=== PATIENT | female | born 1955 | race Caucasian/White ===

== ENCOUNTER 2016-09-23 08:30 | Emergency (ER) | payer BC ==
--- NOTE | 2016-09-23 08:56 | ED.PDOC ---
History of Present Illness - General Chief Complaint: Chest Pain/CT Stated Complaint: jaw and chest tightness Time Seen by Provider: 09/23/16 08:35 Source: patient Exam Limitations: no limitations - History of Present Illness Initial Comments: Kourtney Jaramillo 60 y/o female with history of anxiety depression and chronic back pain stated that for the last 3 weeks had been having jaw tightness and pain accompanied by chest tightness lasting for about 4-6 minutes mostly at night sometimes waking her up usually happens 2 x a day but the last 3 days getting more frequent 5-6 x a day and decided to look at internet suggesting it might be her heart decided to come to ER for further evaluation.Denies exertional chest pain or dyspnea stated non radiating,no diaphoresis,no nausea, no dizziness but with some feeling of sob. Timing/Duration: intermittent, resolved prior to arrival Severity: moderate Improving Factors: nothing Worsening Factors: nothing Associated Symptoms: denies symptoms Allergies/Adverse Reactions: Allergies NO KNOWN ALLERGY Allergy (Verified 09/23/16 09:31) Home Medications: Ambulatory Orders HYDROcodone 10MG/APAP 325MG [[place] 10/325] 2 ea PO Q8HR PRN 03/22/15 ALPRAZolam [Xanax] 1 mg PO BEDTIME PRN #0 tab 04/15/15 Vilazodone HCl [Viibryd] 40 mg PO DAILY 09/23/16 Review of Systems - Review of Systems Constitutional: States: no symptoms reported EENTM: States: no symptoms reported Respiratory: States: see HPI Cardiology: States: see HPI Gastrointestinal/Abdominal: States: no symptoms reported Genitourinary: States: no symptoms reported Musculoskeletal: States: back pain - chronic-osteoarthritis Skin: States: no symptoms reported Neurological: States: no symptoms reported Endocrine: States: no symptoms reported Hematologic/Lymphatic: States: no symptoms reported Past Medical History (General) - Patient Medical History Hx Seizures: No Hx Stroke: No Hx Dementia: No Hx Asthma: No Hx of COPD: No Hx Congestive Heart Failure: No Hx Pacemaker: No Hx Hypertension: No Hx Diabetes: No Hx Gastroesophageal Reflux: Yes Hx Renal Disease: No Hx Cancer: No Hx of HIV: No Hx Hepatitis C: No Hx MRSA: No Hx Other PMH: Yes - chronic back pain,anxiety,depression Surgical History: colectomy - redundant colon chronic fecal impaction, other - hysterectomy Other Surgeries:: mammogram,colonoscopy - Vaccination History Hx Tetanus, Diphtheria Vaccination: No Hx Influenza Vaccination: No - Social History Hx Tobacco Use: No Hx Alcohol Use: No Hx Substance Use: No Hx Substance Use Treatment: No Hx Depression: Yes - on celexa no suicidal thoughts Hx Physical Abuse: No Hx Emotional Abuse: No Hx Suspected Abuse: No - Activities of Daily Living Patient Lives Alone: No - with Grooming Ability: Independent Eating (Feeding) Ability: Independent Toileting Ability: Independent - Female History Patient is a Female of Child Bearing Age (10 -59 yrs old): No Hx Last Menstrual Period: 07/01/84 Family Medical History - Family History Mother Age (years): 42 Living Status: Hx Family Hypertension: Yes - dad Hx Cardiac Disease: Yes - heart attack at 42- Hx Family Diabetes: Yes - dad Hx Family Cancer: Yes - breast-mother,sister Hx Family;Other: sisters with breast cancer, brother and sister have diabetes. Father Living Status: Age at (years of age): 69 Cause of : complications from surgery Hx Family Hypertension: Yes Hx Cardiac Disease: Yes Hx Family Diabetes: Yes Physical Exam - Physical Exam General Appearance: Alert, No apparent distress Eye Exam: bilateral normal Ears, Nose, Throat: hearing grossly normal, normal ENT inspection, normal pharynx Neck: non-tender, full range of motion, supple, normal inspection Respiratory: chest non-tender, lungs clear, normal breath sounds, no respiratory distress Cardiovascular/Chest: normal peripheral pulses, regular rate, rhythm, no edema, no gallop, no JVD, no murmur Peripheral Pulses: radial,right: 2+, radial,left: 2+ Gastrointestinal/Abdominal: normal bowel sounds, non tender, soft Back Exam: normal inspection, no CVA tenderness, no vertebral tenderness Extremity: normal range of motion, non-tender, normal inspection Neurologic: no motor/sensory deficits, alert, normal mood/affect Skin Exam: normal color, warm/dry, cyanosis Progress - Results/Orders Results/Orders: 09/23/16 09:00 CARDIAC ENZYME GROUP Stat COMPLETE METABOLIC PROFILE Stat LIPID PANEL Stat EKG STAT Laboratory Results WBC 4.7 K/mm3 (4.8-10.8) L 09/23/16 09:00 RBC 4.67 M/mm3 (4.20-5.40) 09/23/16 09:00 Hgb 14.0 gm/dL (12.0-16.0) 09/23/16 09:00 Hct 41.5 % (36.0-47.0) 09/23/16 09:00 MCV 88.9 fl (81.0-99.0) 09/23/16 09:00 MCH 30.0 pg (27.0-31.0) 09/23/16 09:00 MCHC 33.7 g/dL (33.0-37.0) 09/23/16 09:00 RDW 12.9 % (11.5-14.5) 09/23/16 09:00 Plt Count 381 K/mm3 (130-400) 09/23/16 09:00 MPV 7.8 fl (7.40-10.4) 09/23/16 09:00 Absolute Neuts (auto) 2.60 K/uL (1.8-6.8) 09/23/16 09:00 Absolute Lymphs (auto) 1.70 K/uL (1.0-3.4) 09/23/16 09:00 Absolute Monos (auto) 0.20 K/uL (0.2-0.8) 09/23/16 09:00 Absolute Eos (auto) 0.30 K/uL (0.0-0.4) 09/23/16 09:00 Absolute Basos (auto) 0.10 K/uL (0.0-0.1) 09/23/16 09:00 Neutrophils % 54.6 % (42.0-78.0) 09/23/16 09:00 Lymphocytes % 35.0 % (20.0-50.0) 09/23/16 09:00 Monocytes % 3.5 % (2.0-9.0) 09/23/16 09:00 Eosinophils % 5.8 % (1.0-5.0) H 09/23/16 09:00 Basophils % 1.1 % (0.0-2.0) 09/23/16 09:00 D-Dimer, Quantitative < 230 ng/mL (0-230) 09/23/16 09:00 Sodium 140 mmol/L (135-145) 09/23/16 09:00 Potassium 3.5 mmol/L (3.6-5.0) L 09/23/16 09:00 Chloride 103 mmol/L (101-111) 09/23/16 09:00 Carbon Dioxide 28 mmol/L (21-31) 09/23/16 09:00 Anion Gap 12.5 (12-18) 09/23/16 09:00 BUN 12 mg/dL (7-18) 09/23/16 09:00 Creatinine 0.74 mg/dL (0.6-1.3) 09/23/16 09:00 BUN/Creatinine Ratio 16.2 (10-20) 09/23/16 09:00 Random Glucose 128 mg/dL (70-105) H 09/23/16 09:00 Serum Osmolality 280.8 mOsm/L (275-295) 09/23/16 09:00 Calcium 9.8 mg/dL (8.4-10.2) 09/23/16 09:00 Total Bilirubin 0.4 mg/dL (0.2-1.0) 09/23/16 09:00 AST 30 IU/L (10-42) 09/23/16 09:00 ALT 29 IU/L (10-60) 09/23/16 09:00 Alkaline Phosphatase 79 IU/L (42-121) 09/23/16 09:00 Creatine Kinase 92 IU/L (26-140) 09/23/16 09:00 CK-MB (CK-2) 1.6 ng/mL (0.0-4.4) 09/23/16 09:00 Troponin I < 0.02 ng/mL (0.01-0.05) 09/23/16 09:00 Serum Total Protein 7.2 gm/dL (6.4-8.2) 09/23/16 09:00 Albumin 4.2 g/dl (3.2-5.5) 09/23/16 09:00 Globulin 3.0 gm/dL (2.3-3.5) 09/23/16 09:00 Albumin/Globulin Ratio 1.4 (1.1-1.9) 09/23/16 09:00 Triglycerides 119 mg/dL (35-160) 09/23/16 09:00 Cholesterol 193 mg/dL (100-200) 09/23/16 09:00 Cholesterol Risk Factr 3.5 (4.0-6.7) L 09/23/16 09:00 LDL Cholesterol Direct 120.8 mg/dL (1.0-130.0) 09/23/16 09:00 HDL Cholesterol 55 mg/dL (29-89) 09/23/16 09:00 Urine Color Yellow (Yellow) 09/23/16 09:10 Urine Appearance Clear (Clear) 09/23/16 09:10 Urine pH 5.5 (4.5-7.8) 09/23/16 09:10 Ur Specific [place] >= 1.030 (1.005-1.030) 09/23/16 09:10 Urine Protein Negative mg/dL 09/23/16 09:10 Urine Glucose (UA) Negative mg/dL (Negative) 09/23/16 09:10 Urine Ketones Negative mg/dL (NEGATIVE) 09/23/16 09:10 Urine Blood Trace-intact (Negative) H 09/23/16 09:10 Urine Nitrite Negative 09/23/16 09:10 Urine Bilirubin Negative (NEGATIVE) 09/23/16 09:10 Urine Urobilinogen 0.2 mg/dL (0.2-1.0) 09/23/16 09:10 Ur Leukocyte Esterase Negative (Negative) 09/23/16 09:10 Urine RBC 0-1 /hpf 09/23/16 09:10 Urine WBC 0 /hpf 09/23/16 09:10 Ur Epithelial Cells 1-3 /hpf 09/23/16 09:10 Urine Bacteria 0 09/23/16 09:10 Vital Signs - 24 hr 09/23/16 09/23/16 09/23/16 08:55 09:22 09:30 Temperature 98.3 F Pulse Rate [L 87 75 73 Arm] Respiratory 12 20 16 Rate Blood Pressure 130/73 128/75 118/75 [L Arm] O2 Sat by Pulse 93 L 98 92 L Oximetry 09/23/16 09:33 Temperature Pulse Rate [L Arm] Respiratory 20 Rate Blood Pressure [L Arm] O2 Sat by Pulse Oximetry Troponin # 2- normal - EKG/XRAY/CT EKG: Sinus, no ST T wave changes Comments: heart rate-72 XRAY: chest - no acute abnormality noted Departure - Departure Clinical Impression: Feeling of chest tightness, Jaw pain, non-TMJ Time of Disposition: 11:02 Disposition: Discharge to Home or Self Care Condition: Good Departure Forms: ED Discharge - Pt. Copy, Patient Portal Self Enrollment Instructions: DI for Atypical Chest Pain Home Medications: Ambulatory Orders HYDROcodone 10MG/APAP 325MG [[place] ] 2 ea PO Q8HR PRN 03/22/15 ALPRAZolam [Xanax] 1 mg PO BEDTIME PRN #0 tab 04/15/15 Vilazodone HCl [Viibryd] 40 mg PO DAILY 09/23/16 Additional Instructions: RETURN TO EMERGENCY ROOM NEEDED;FOLLOW UP WITH PRIMARY MD 09/24/16 callo for your appointment.
[2016-09-23] MEDS ORDERED: ASPIRIN (CHEWABLE) 81 MG TAB PO ONE (09:00)
--- NOTE | 2016-09-23 09:26 | RAD ---
PROCEDURE: XR CHEST 1 VIEW HISTORY: pain COMPARISON: 10/03/2015 TECHNIQUE: Single projection of the chest was done. FINDINGS: The lung rojas are well inflated . There are no discrete airspace infiltrates, pneumothoraces or pleural effusions. The pulmonary vascularity is normal. The cardiomediastinal silhouette is stable and unremarkable. IMPRESSION: There is no acute pleural-parenchymal process seen in the imaged lung rojas. Location of Interpretation: [facility] Electronically signed by: Derian Wise MD 09/23/2016 9:25 AM CDT
[2016-09-23 11:21] VITALS: BP 128/58; TEMP 97.8; O2SAT 97
== END 2016-09-23 11:20 | disposition home or self-care (01) ==
LOC: ER 08:30
DX: R07.89 Other chest pain (principal); R68.84 Jaw pain; F41.8 Other specified anxiety disorders; G89.29 Other chronic pain; M54.9 Dorsalgia, unspecified; K21.9 Gastro-esophageal reflux disease without esophagitis; Z82.49 Family history of ischemic heart disease and other diseases of the circulatory system; Z83.3 Family history of diabetes mellitus; Z80.3 Family history of malignant neoplasm of breast; Z79.899 Other long term (current) drug therapy

== ENCOUNTER → 2017-02-01 | Outpatient (CLI) | payer BC | END | disposition home or self-care (01) | LOC: GMAL 13:07 | PROVIDERS: ATTEND Family Medicine | DX: N95.1 Menopausal and female climacteric states (principal); R53.83 Other fatigue; E29.1 Testicular hypofunction ==

== ENCOUNTER → 2017-04-17 | Outpatient (CLI) | payer BC | LOC: GMA 16:53 | PROVIDERS: ATTEND Nurse Practitioner Acute Care | DX: D51.3 Other dietary vitamin B12 deficiency anemia (principal) ==

== ENCOUNTER 2017-05-20 16:12 | Emergency (ER) | payer BC ==
--- NOTE | 2017-05-20 17:15 | ED.PDOC ---
History of Present Illness - General Chief Complaint: General Stated Complaint: POSS FLU Time Seen by Provider: 05/20/17 16:28 Source: patient Exam Limitations: no limitations - History of Present Illness Initial Comments: PT WAS SENT HERE FROM THE CLINIC FOR EVALUATION OF FLU LIKE SYMPTOMS. PT HAS HAD FEVER, AND CHILLS SINCE LAST NIGHT ASSOCIATED WITH NASAL CONGESTION, THROAT IRRITATION, BODYACHES AND HEADACHE. PT REPORTS TAKING ADVIL AND MUCINEX AT HOME WITHOUT RELIEF. PT REPORTS GETTING FLU SHOT AND PNEUMONIA SHOT THIS YEAR. Timing/Duration: 24 hours Severity: moderate Improving Factors: rest Worsening Factors: movement Associated Symptoms: fever/chills, headaches, malaise, weakness Allergies/Adverse Reactions: Allergies NO KNOWN ALLERGY Allergy (Verified 05/20/17 16:26) Home Medications: Ambulatory Orders ALPRAZolam [Xanax] 1 mg PO BEDTIME PRN #0 tab 04/15/15 Cefuroxime Axetil [Ceftin] 250 mg PO BID 10 Days #20 tab 05/20/17 Review of Systems - Review of Systems Constitutional: States: see HPI, chills, fever, malaise, weakness EENTM: States: nose congestion, throat pain Respiratory: Denies: cough, short of breath Cardiology: Denies: chest pain, palpitations Gastrointestinal/Abdominal: Denies: abdominal pain, nausea, vomiting Genitourinary: Denies: dysuria, frequency Musculoskeletal: Denies: back pain, joint swelling Skin: Denies: change in hair/nails, lesions Neurological: States: no symptoms reported Endocrine: States: no symptoms reported Past Medical History (General) - Patient Medical History Hx Seizures: No Hx Stroke: No Hx Dementia: No Hx Asthma: No Hx of COPD: No Hx Cardiac Disorders: No Hx Congestive Heart Failure: No Hx Pacemaker: No Hx Hypertension: No Hx Diabetes: No Hx Gastroesophageal Reflux: Yes Hx Renal Disease: No Hx Cancer: No Hx of HIV: No Hx Hepatitis C: No Hx MRSA: No Surgical History: colectomy, Hysterectomy - Vaccination History Hx Tetanus, Diphtheria Vaccination: No Hx Influenza Vaccination: Yes Hx Pneumococcal Vaccination: No Immunizations Up to Date: No - Social History Hx Tobacco Use: No Hx Chewing Tobacco Use: No Hx Alcohol Use: No Hx Substance Use: No Hx Substance Use Treatment: No Hx Depression: Yes - on celexa no suicidal thoughts Hx Physical Abuse: No Hx Emotional Abuse: No Hx Suspected Abuse: No - Female History Hx Last Menstrual Period: 07/01/84 Patient : No Family Medical History - Family History Mother Age (years): 42 Living Status: Hx Family Hypertension: Yes - dad Hx Cardiac Disease: Yes - heart attack at 42- Hx Family Diabetes: Yes - dad Hx Family Cancer: Yes - breast-mother,sister Hx Family;Other: sisters with breast cancer, brother and sister have diabetes. Father Living Status: Age at (years of age): 69 Cause of : complications from surgery Hx Family Hypertension: Yes Hx Cardiac Disease: Yes Hx Family Diabetes: Yes Physical Exam - Physical Exam General Appearance: Alert, Well Developed, Well Groomed, Well Hydrated, Other - APPEARS UNCOMFORTABLE Eye Exam: bilateral normal Ears, Nose, Throat: hearing grossly normal Neck: full range of motion, normal inspection Respiratory: chest non-tender, normal breath sounds, no respiratory distress Cardiovascular/Chest: regular rate, rhythm, no murmur Gastrointestinal/Abdominal: non tender, soft Back Exam: normal inspection, no CVA tenderness Extremity: non-tender, normal inspection Neurologic: alert, normal mood/affect, oriented x 3 Skin Exam: normal color, warm/dry Progress - Progress Progress: 05/20/17 18:58 PT REPORTS ONLY MINIMAL IMPROVEMENT IN BODYACHES AFTER IV FLUID AND TORADOL. LABS AND DIAGNOSTIC STUDIES DISCUSSED. WILL TREAT UTI AND ADVISE PT TO FOLLOW UP WITH PCP IN 1-2 DAYS. - Results/Orders Results/Orders: 05/20/17 17:05 Sodium Chloride 0.9% 1000ML [Ns 1000 ml] 1,000 ml IVS .QD 05/20/17 17:15 EKG STAT 05/20/17 18:33 URINE CULTURE W/COLONY COUNT Stat Laboratory Results - last 24 hr 05/20/17 05/20/17 05/20/17 17:19 17:19 18:33 WBC 9.6 RBC 4.35 Hgb 13.0 Hct 38.3 MCV 88.1 MCH 29.9 MCHC 34.0 RDW 13.3 Plt Count 306 MPV 7.4 Absolute Neuts (auto) 7.10 H Absolute Lymphs (auto) 1.90 Absolute Monos (auto) 0.30 Absolute Eos (auto) 0.30 Absolute Basos (auto) 0.00 Neutrophils % 74.2 Lymphocytes % 19.5 L Monocytes % 3.3 Eosinophils % 2.6 Basophils % 0.4 Sodium 139 Potassium 3.6 Chloride 102 Carbon Dioxide 30 Anion Gap 10.6 L BUN 12 Creatinine 0.52 L BUN/Creatinine Ratio 23.1 H Random Glucose 94 Serum Osmolality 277.0 Calcium 9.3 Total Bilirubin 0.5 AST 32 ALT 30 Alkaline Phosphatase 60 Serum Total Protein 7.7 Albumin 3.9 Globulin 3.8 H Albumin/Globulin Ratio 1.0 L Urine Color Yellow Urine Appearance Sl cloudy Urine pH 5.5 Ur Specific [place] >= 1.030 Urine Protein Negative Urine Glucose (UA) Negative Urine Ketones 40 H Urine Blood Negative Urine Nitrite Negative Urine Bilirubin Small H Urine Urobilinogen 0.2 Ur Leukocyte Esterase Negative Urine RBC 3-5 H Urine WBC 10-20 H Ur Epithelial Cells 10-20 Urine Bacteria 4+ H Urine Mucus Small - EKG/XRAY/CT EKG: Sinus - @90BPM, NL INTERVALS, NL AXIS, no ST T wave changes, Unchanged from - 09/23/16 Departure - Departure Clinical Impression: Urinary tract infection Qualifiers: Urinary tract infection type: site unspecified Hematuria presence: without hematuria Qualified Code(s): N39.0 - Urinary tract infection, site not specified Fever Qualifiers: Fever type: unspecified Qualified Code(s): R50.9 - Fever, unspecified Time of Disposition: 19:00 Disposition: Discharge to Home or Self Care Condition: Good Departure Forms: ED Discharge - Pt. Copy, Patient Portal Self Enrollment Instructions: DI for Urinary Tract Infection (UTI) Referrals: Ari Matamoros III, MD [Primary Care Provider] - 1-2 Weeks Prescriptions: Cefuroxime Axetil [Ceftin] 250 mg PO BID 10 Days #20 tab Home Medications: Ambulatory Orders ALPRAZolam [Xanax] 1 mg PO BEDTIME PRN #0 tab 04/15/15 Cefuroxime Axetil [Ceftin] 250 mg PO BID 10 Days #20 tab 05/20/17
[2017-05-20] MEDS: SODIUM CHLORIDE 0.9% 1000ML 1,000 ML IVS PRN (17:33)
[2017-05-20] MEDS: KETOROLAC TROMETHAMINE INJ 30 MG/ML VIAL IV ONE (17:33)
--- NOTE | 2017-05-20 18:28 | RAD ---
EXAM DESCRIPTION: Chest,1 View CLINICAL HISTORY: fever COMPARISON: None FINDINGS: Cardiac silhouette is within normal limits. There is elevation of the right hemidiaphragm. Aorta is tortuous. There is no focal parenchymal or pleural disease. There is no acute osseous process visualized. IMPRESSION: No evidence of acute cardiopulmonary disease. Electronically signed by: Luis Felipe Gillis MD 05/20/2017 6:27 PM [facility]
[2017-05-20] MEDS: CEFUROXIME AXETIL TAB 250 MG TAB PO ONE (19:13)
[2017-05-20 19:33] VITALS: BP 112/72; TEMP 99.6; O2SAT 92
== END 2017-05-20 19:38 | disposition home or self-care (01) ==
LOC: ER 16:12
DX: N39.0 Urinary tract infection, site not specified (principal); R50.81 Fever presenting with conditions classified elsewhere; K21.9 Gastro-esophageal reflux disease without esophagitis; F32.9 Major depressive disorder, single episode, unspecified; Z79.899 Other long term (current) drug therapy; Z82.49 Family history of ischemic heart disease and other diseases of the circulatory system
CPT/HCPCS: 36415; 71010; 80053; 81001; 85025; 87086; 87502; 93005; J1885; J7030

== ENCOUNTER → 2017-07-16 | Outpatient (CLI) | payer BC | LOC: GMAL 17:59 | PROVIDERS: ATTEND Family Medicine | DX: D48.5 Neoplasm of uncertain behavior of skin (principal) ==

== ENCOUNTER → 2017-09-16 | Outpatient (CLI) | payer OTHER | LOC: LAB.O 16:12 | PROVIDERS: ATTEND Nurse Practitioner Acute Care | DX: N95.1 Menopausal and female climacteric states (principal) ==

== ENCOUNTER 2017-10-21 15:54 | Observation (INO) | payer BC ==
[2017-10-21] MEDS ORDERED: ONDANSETRON ODT 8 MG TAB SL ONE ×2 (16:17→16:35)
[2017-10-21] MEDS ORDERED: ONDANSETRON ODT 8 MG TAB ONE (16:17)
[2017-10-21] MEDS ORDERED: PROMETHAZINE HCL 25 MG TAB PO ONE (16:41)
[2017-10-21] MEDS ORDERED: PROMETHAZINE HCL INJ 25 MG in SODIUM CHLORIDE 0.9% 50ML 50 ML IVPB ONE (16:45)
[2017-10-21] MEDS ORDERED: SODIUM CHLORIDE 0.9% 50ML 50 ML ONE ×2 (16:49→23:40)
[2017-10-21] MEDS ORDERED: PROMETHAZINE HCL INJ 25 MG/ML VIAL ONE ×2 (16:49→23:40)
--- NOTE | 2017-10-21 17:50 | ED.PDOC ---
History of Present Illness - General Chief Complaint: Neuro Symptoms/Deficits Stated Complaint: dizziness, right sided neck pain, n/v Time Seen by Provider: 10/21/17 16:01 Source: patient, family Exam Limitations: no limitations - History of Present Illness Initial Comments: the patient is a 61-year-old female presenting to the emergency room with an episode of acute onset vertigo. She does apparently carry a diagnosis of Mnire's She has seen both ENT and neurology in the past apparently. She is uncertain what workup she has had in the past in the form of imaging. She believes she has had a head scan of some form. She has a history of anxiety and hypokalemia as well as urinary tract infection. She was actually feeling okay prior to this event. with the vertigo, the patient is having some very severe nausea and vomiting. It is taken several doses of nausea medications just to control the vomiting minimally. She is not having any abdominal pain. No fever. No unusual symptoms prior. She has noticed some increased tinnitus in bilateral ears over the last week. no recent hearing changes. No focal neurological changes. She is having some neck spasm to her right posterior lateral neck when she is throwing up. She does have a history of some mild hypokalemia. No altered mental status. No significant blood thinners according to her. no syncope or near syncope. No neurological changes otherwise. She did not injure herself with the onset. Physical exam shows significant disequilibrium but no really significant abnormal nystagmus. She reports this is probably her fifth or sixth severe episode. She normally takes oral Phenergan with the milder episodes. Even with medications currently she is unable to lie back flat. Timing/Duration: 1/2 hour Severity: severe Improving Factors: nothing Worsening Factors: nothing Associated Symptoms: malaise, nausea/vomiting Allergies/Adverse Reactions: Allergies NO KNOWN ALLERGY Allergy (Verified 05/20/17 16:26) Home Medications: Ambulatory Orders ALPRAZolam [Xanax] 1 mg PO BEDTIME PRN #0 tab 04/15/15 Cefuroxime Axetil [Ceftin] 250 mg PO BID 10 Days #20 tab 05/20/17 Review of Systems - Review of Systems Constitutional: States: malaise EENTM: States: no symptoms reported Respiratory: States: no symptoms reported Cardiology: States: no symptoms reported Gastrointestinal/Abdominal: States: nausea, vomiting Genitourinary: States: no symptoms reported Musculoskeletal: States: neck pain - right posterior lateral Skin: States: no symptoms reported Neurological: States: other - vertigo Endocrine: States: no symptoms reported All other Systems: No Change from Baseline Past Medical History (General) - Patient Medical History Hx Seizures: No Hx Stroke: No Hx Dementia: No Hx Asthma: No Hx of COPD: No Hx Cardiac Disorders: No Hx Congestive Heart Failure: No Hx Pacemaker: No Hx Hypertension: No Hx Diabetes: No Hx Gastroesophageal Reflux: Yes Hx Renal Disease: No Hx Cancer: No Hx of HIV: No Hx Hepatitis C: No Hx MRSA: No Surgical History: no surgical history - Vaccination History Hx Tetanus, Diphtheria Vaccination: No Hx Influenza Vaccination: Yes Hx Pneumococcal Vaccination: No - Social History Hx Tobacco Use: No Hx Chewing Tobacco Use: No Hx Alcohol Use: No Hx Substance Use: No Hx Substance Use Treatment: No Hx Depression: Yes - on celexa no suicidal thoughts Hx Physical Abuse: No Hx Emotional Abuse: No Hx Suspected Abuse: No - Female History Hx Last Menstrual Period: 07/01/84 Patient : No Family Medical History - Family History Mother Age (years): 42 Living Status: Hx Family Hypertension: Yes - dad Hx Cardiac Disease: Yes - heart attack at 42- Hx Family Diabetes: Yes - dad Hx Family Cancer: Yes - breast-mother,sister Hx Family;Other: sisters with breast cancer, brother and sister have diabetes. Father Living Status: Age at (years of age): 69 Cause of : complications from surgery Hx Family Hypertension: Yes Hx Cardiac Disease: Yes Hx Family Diabetes: Yes Physical Exam - Physical Exam General Appearance: Alert, Anxious Eye Exam: bilateral normal - no obvious abnormal nystagmus. No vertical skew deviation. Head and pulse testing is poorly tolerated and equivocal. Ears, Nose, Throat: hearing grossly normal, normal ENT inspection, normal pharynx Neck: full range of motion, other - mild posterior right muscle spasm Respiratory: lungs clear, normal breath sounds, no respiratory distress, no accessory muscle use Cardiovascular/Chest: normal peripheral pulses, regular rate, rhythm, no edema Peripheral Pulses: radial,right: 2+, radial,left: 2+ Gastrointestinal/Abdominal: non tender, soft Rectal Exam: deferred Back Exam: no CVA tenderness, no vertebral tenderness Extremity: normal range of motion, non-tender, normal inspection, no pedal edema , normal capillary refill Neurologic: payment rep II-XII nml as tested - ee above, no motor/sensory deficits, alert, oriented x 3 Skin Exam: normal color Comments: Vital Signs - 24 hr 10/21/17 10/21/17 16:24 17:25 Temperature 99.1 F Pulse Rate [ 74 left brachial] Respiratory 16 Rate Blood Pressure 139/78 125/83 [left brachial] O2 Sat by Pulse 98 97 Oximetry Progress - Progress Progress: 10/21/17 17:54 the patient is a 61-year-old female with a history of Mnire's disease. She is presenting with acute onset vertigo with background tinnitus. lab work looks to be within normal limits. The patient has required 2 episodes of Zofran and a dose of IV Phenergan to even partially control her nausea and vomiting. Head CT is likely very low yield on this patient as she has apparently had imaging of some form in the past and she cannot currently lie back flat anyway. No other symptoms to indicate a stroke at this time. Once she is able to tolerate some oral intake, a dose of acetazolamide and prednisone may prove beneficial. admit for further management of symptoms. The patient is a very high fall risk. No additional IV fluids have yet been given. - Results/Orders Results/Orders: Laboratory Results - last 24 hr 10/21/17 10/21/17 16:55 16:55 WBC 4.1 L RBC 5.04 Hgb 14.1 Hct 42.2 MCV 83.7 MCH 27.9 MCHC 33.3 RDW 14.2 Plt Count 314 MPV 7.5 Absolute Neuts (auto) 1.90 Absolute Lymphs (auto) 1.80 Absolute Monos (auto) 0.30 Absolute Eos (auto) 0.10 Absolute Basos (auto) 0.00 Neutrophils % 46.5 Lymphocytes % 44.1 Monocytes % 6.1 Eosinophils % 2.8 Basophils % 0.5 Sodium 139 Potassium 3.8 Chloride 102 Carbon Dioxide 31 Anion Gap 9.8 L BUN 8 Creatinine 0.63 BUN/Creatinine Ratio 12.7 Random Glucose 100 Serum Osmolality 276.0 Calcium 9.4 Magnesium 1.8 Total Bilirubin 0.3 AST 24 ALT 15 Alkaline Phosphatase 70 Serum Total Protein 7.0 Albumin 3.8 Globulin 3.2 Albumin/Globulin Ratio 1.2 Departure - Departure Clinical Impression: Meniere's disease of both ears, Vertigo Disposition: Admit Patient Condition: Fair Referrals: Ari Matamoros III, MD [Primary Care Provider] - 1-2 Weeks Home Medications: Ambulatory Orders ALPRAZolam [Xanax] 1 mg PO BEDTIME PRN #0 tab 04/15/15 Cefuroxime Axetil [Ceftin] 250 mg PO BID 10 Days #20 tab 05/20/17 Decision To Admit - Decistion To Admit Decision to Admit Reason: Medical Nature Decision to Admit Date: 10/21/17 Decision to Admit Time: 17:57
--- NOTE | 2017-10-21 18:27 | HP ---
SUPERVISING PHYSICIAN: Latrell Nguyen M.D. CHIEF COMPLAINT: HISTORY OF PRESENT ILLNESS: This is a 61 year-old female who came into the Emergency Room with the acute onset of vertigo. She does have a history of Meniere's disease for which she has seen an ear, nose and throat doctor as well as a neurologist in the past. She states that she has never been placed on any usp medications for this. She has been given Phenergan and actually went to see an ENT in [place] and they did some position changes and it helped at that point. Anyhow, she was in her normal state of health until the vertigo started about half an hour prior to coming to the E. R., so around 3:30 in the afternoon. This was associated with nausea and vomiting. She is not having any abdominal pain. No other symptoms. Her labs were pretty much unremarkable. She was given some Promethazine in the Emergency Room as well as Zofran. It did improve the nausea a bit but she still was symptomatic, therefore the E. R. physician referred her for observation. At time of examination, the patient is a little bit groggy but able to answer questions appropriately. She said she has never taken Antivert and never taken any Valium for acute onset, only the Phenergan. As stated above, position changes have worked in the past, however it did not this time. PAST MEDICAL HISTORY: 1. Meniere's disease. 2. Atrial fibrillation in the past. 3. Gastroesophageal reflux disease. 4. Insomnia. 5. Migraine headaches. 6. Anxiety. 7. Seasonal allergies. 8. Iron deficiency anemia. PAST SURGICAL HISTORY: 1. Back surgery. 2. Hysterectomy. 3. Total colectomy. 4. Breast biopsy times 2 which were both benign. 5. Esophagogastroduodenoscopy. 6. Colonoscopies. CURRENT MEDICATIONS: 1. Xanax 1 mg at bedtime. 2. Fioricet 1 to 2 tabs every 4 hours p.r.n. for headaches or migraines. 3. Doxycycline 100 mg p.o. b.i.d. basically as a preventative measure for her skin infections. 4. Promethazine 25 mg p.o. every 6 hours p.r.n. for nausea. 5. Zoloft 25 mg at bedtime. ALLERGIES: NO KNOWN DRUG ALLERGIES. FAMILY HISTORY: Reviewed and unremarkable. Her dad had a heart attack at age 42 and from that and he had diabetes. Mother had breast cancer. Sister had breast cancer. SOCIAL HISTORY: No alcohol. No smoking. No illicit drugs. REVIEW OF SYSTEMS: CONSTITUTIONAL: No fever and no chills. No recent weight loss or weight gain. HEENT: Positive for headaches. No vision changes. No ear pain. No nasal congestion. No throat pain. RESPIRATORY: No cough, hemoptysis or pleuritic chest pain. CARDIOVASCULAR: No chest pain, palpitations or peripheral edema. GASTROINTESTINAL: Positive for nausea and vomiting. No diarrhea. No constipation. No abdominal pain. GENITOURINARY: No dysuria, frequency or flank pain. HEMATOLOGIC: No easy bruising or transfusion reaction. MUSCULOSKELETAL: No muscle cramps, back pain or muscle spasms. ENDOCRINE: No polydipsia, polyuria or polyphagia. No heat or cold intolerance. SKIN: She does have a rash in the middle of her lower back. PHYSICAL EXAMINATION: VITAL SIGNS: Blood pressure 107/68, heart rate 63, respiratory rate 18, temperature 98.2, oxygen saturation 96%. GENERAL: Ms. Jaramillo is a 61 year-old female who is in mild distress secondary to her headache and vertigo at this time. HEENT: Head is normocephalic and atraumatic. Eyes: Pupils are equal and reactive. Nose: There is no drainage. Throat: Moist mucosa. NECK: Supple. Midline trachea. No jugular venous distention. CHEST: Symmetrical with equal rise and fall of the chest with inspiration and expiration. Lung sounds are clear to auscultation bilaterally. CARDIOVASCULAR: Regular rate and rhythm. Normal S1 and S2. ABDOMEN: Soft, positive bowel sounds. GENITOURINARY: Exam is deferred. EXTREMITIES: Lower extremities with no significant edema, 2+ peripheral pulses. Capillary refill less than 2 seconds. NEUROLOGIC: The patient is alert and oriented. Cranial nerves II-XII are grossly intact. Moves all extremities. Extraocular movements are intact. SKIN: With a patchy dermatitis in the middle of the lumbar area which extends over into the left side. There are no open vesicles. LABORATORY: Labs are reviewed and unremarkable. ASSESSMENT: 1. Meniere's disease with an acute exacerbation. 2. History of migraine headaches with an acute headache at this time. 3. Anxiety disorder. 4. Dermatitis mid back, rule out shingles. 5. Volume depletion secondary to nausea and vomiting. PLAN: At this point we will place her in Observation. Put her on IV fluids and put on scheduled Antivert and Promethazine as well as Valium. If these are not effective, will try to move on to a different modality, however these have proven to be pretty effective treatments. The patient thinks she has shingles in her back and says she was treated for it before, and it is in the exact same spot that it was before. To me, it does not really look like shingles. It looks like more of a patchy dermatitis. She is already on Minocycline and so I am not going to add any antibiotics at this time. Her white count is normal. There are no open wounds and no cellulitis. Will resume her home medications and if she improves overnight, she can probably go home tomorrow. #[id number] MTDD
[2017-10-21] MEDS ORDERED: diazePAM 5 MG TAB PO PRN (19:46)
[2017-10-21] MEDS ORDERED: IV SET AND CAP CHANGE INJ INJ SCH (20:00)
[2017-10-21] MEDS ORDERED: NON-FORMULARY MEDICATION 1 EA MIS (Sertraline Hcl [Zoloft] 25 MG) PO SCH (21:00)
[2017-10-21] MEDS ORDERED: SERTRALINE HCL 50 MG TAB ONE (21:01)
[2017-10-21] MEDS: ACETAMINOPHEN-CAFF-BUTALBITAL 1 EA TAB PO PRN (21:04)
[2017-10-21] MEDS: MECLIZINE HCL 12.5 MG TAB PO SCH (21:04)
[2017-10-21] MEDS: SODIUM CHLORIDE 0.9% 1000ML 1,000 ML IVS PRN (21:06)
[2017-10-21] MEDS: PROMETHAZINE HCL 25 MG TAB PO PRN (21:14)
[2017-10-21] MEDS: DOXYCYCLINE PO SCH (21:58)
[2017-10-21] MEDS ORDERED: PROMETHAZINE HCL INJ 12.5 MG in SODIUM CHLORIDE 0.9% 50ML 50 ML IVPB ONE (23:37)
[2017-10-22] MEDS: MECLIZINE HCL 12.5 MG TAB PO SCH ×4 (01:53→19:38)
[2017-10-22] MEDS: ACETAMINOPHEN-CAFF-BUTALBITAL 1 EA TAB PO PRN ×4 (02:05→19:43)
[2017-10-22] MEDS: PROMETHAZINE HCL 25 MG TAB PO PRN ×3 (04:37→22:15)
[2017-10-22] MEDS: SODIUM CHLORIDE 0.9% 1000ML 1,000 ML IVS PRN ×2 (05:59→16:06)
[2017-10-22] MEDS: diazePAM 5 MG TAB PO SCH ×3 (09:36→21:05)
[2017-10-22] MEDS: DOXYCYCLINE PO SCH ×2 (09:49→16:42)
--- NOTE | 2017-10-22 10:25 | PN ---
SUPERVISING PHYSICIAN: Latrell Nguyen MD DATE: 10/22/17 SUBJECTIVE: The patient is still complaining of some vertigo and nausea. However, subjectively, she still states it is improved from yesterday. OBJECTIVE: VITAL SIGNS: Blood pressure 95/59. Heart rate 63. Respiratory rate 1 6. Temperature 98.0. Oxygen saturation 95%. GENERAL: Ms. Jaramillo is a 61-year-old female in no active distress, but clearly uncomfortable with bright lights. NEUROLOGIC: Alert and oriented. LUNGS: Clear to auscultation bilaterally. CARDIOVASCULAR: Regular rate and rhythm. Normal S1, S2. ABDOMEN: Soft, obese. Positive bowel sounds. GENITOURINARY: Deferred. EXTREMITIES: Lower extremities with 2+ pulses. Capillary refill is less than 2 seconds. ASSESSMENT: 1. Mnire's disease with an acute exacerbation. 2. Acute migraine headache, appears to be improved. 3. History of anxiety disorder. 4. Dermatitis to mid back. 5. Volume depletion secondary to nausea and vomiting. PLAN: I did place her on scheduled Valium, but it appears that it was changed to p.r.n. somehow, so I am changing this back to scheduled. We will continue with the Antivert and promethazine as well. I have also had Dr. Nguyen look at the dermatitis on her back. Although it is not shingles, he suspects potentially herpes simplex dermatitis and therefore I am going to place her on Valtrex. The HSV titer is still pending that we sent. I am going to continue her on the minocycline at this point. If she does not break out with vesicles, I am going to start her on some steroids either later this afternoon or in the morning, so she will definitely being staying at least one more night. #[id number] [facility]
[2017-10-22] MEDS: valACYclovir 500 MG TAB PO SCH ×2 (11:31→20:40)
[2017-10-22] MEDS ORDERED: PROMETHAZINE HCL INJ 12.5 MG in SODIUM CHLORIDE 0.9% 50ML 50 ML IVPB ONE (11:42)
[2017-10-22] MEDS ORDERED: SODIUM CHLORIDE 0.9% 50ML 50 ML ONE (11:50)
[2017-10-22] MEDS ORDERED: PROMETHAZINE HCL INJ 25 MG/ML VIAL ONE (11:50)
[2017-10-22] MEDS ORDERED: SERTRALINE HCL 50 MG TAB PO SCH (21:00)
[2017-10-23] MEDS: SODIUM CHLORIDE 0.9% 1000ML 1,000 ML IVS PRN (02:02)
[2017-10-23] MEDS: MECLIZINE HCL 12.5 MG TAB PO SCH ×2 (02:02→07:52)
[2017-10-23] MEDS: diazePAM 5 MG TAB PO SCH ×2 (03:51→08:46)
[2017-10-23] MEDS: DOXYCYCLINE PO SCH (07:52)
[2017-10-23] MEDS ORDERED: DEXAMETHASONE INJ 10 MG/ML VIAL IV ONE (08:42)
[2017-10-23] MEDS: SODIUM CHLORIDE 0.9% (FLUSH) 10 ML SYG IV PRN ×2 (08:46→09:31)
[2017-10-23] MEDS: valACYclovir 500 MG TAB PO SCH (08:47)
[2017-10-23] MEDS: PROMETHAZINE HCL 25 MG TAB PO PRN (09:31)
--- NOTE | 2017-10-23 09:53 | CT ---
EXAM DESCRIPTION: Head: Computed Tomography. CLINICAL HISTORY: VERTIGO. COMPARISON: None. TECHNIQUE: Non-helical axial scans through the skull and brain, at 2.5 mm intervals, non-contrast. Coronal and sagittal 2.0 mm reconstructions. Total Exam DLP: 859.97 mGy-cm. This exam was performed according to our departmental dose-optimization program which includes automated exposure control, adjustment of the mA and/or kV according to patient size and/or use of iterative reconstruction technique; to reduce radiation dose to as low as reasonably achievable (ALARA). FINDINGS: No hemorrhage, no mass-effect, and no midline shift. Normal alonzo-white matter differentiation. No abnormal radiodense material in the brain parenchyma. Vascular calcifications not seen; physiologic calcifications in the pineal gland and choroid plexus. No effacement or displacement of the ventricles, CSF spaces, or subdural spaces. No extra axial fluid collection or hemorrhage. Cortical sulci are minimally prominent abutting the frontal and parietal lobes for patient's age. No gross abnormalities of the bony calvarium. Included paranasal sinuses and mastoid air cells are well - aerated. IMPRESSION: 1. No hemorrhage, no mass effect, no midline shift. 2. CT scans are insensitive for detecting small CVAs in the first 24 hours after onset. Evaluation of the brain stem is also limited. If symptoms persist, consider NON-EMERGENT MRI scan of the brain with diffusion imaging. Electronically signed by: Rene Garcia MD 10/23/2017 9:51 AM CDT
[2017-10-23 10:48] VITALS: BP 109/64; TEMP 98.3; O2SAT 96
--- NOTE | 2017-10-23 11:25 | DS ---
SUPERVISING PHYSICIAN: Latrell Nguyen MD ADMISSION DIAGNOSIS: 1. Mnire's disease with an acute exacerbation. 2. History of migraine headaches with an acute headache on admission. 3. Anxiety disorder. 4. Mid-back dermatitis, rule out shingles. 5. Volume depletion secondary to nausea and vomiting. DISCHARGE DIAGNOSIS: 1. Mnire's disease with an acute exacerbation. 2. Migraine headache, improved. 3. Anxiety disorder. 4. Dermatitis to mid back, HSV titer is pending, however, it is not shingles. 5. Volume depletion, improved secondary to IV fluids. HOSPITAL COURSE: This is a 61-year-old female who came to the Emergency Room with acute onset of vertigo. She does have a history of Mnire's disease, but was never placed on any chronic medications for this or even given any p.r.n. medication such as Antivert. She says she has seen an ENT doctor in the past and with position changes, actually had some improvement. At this time, when she came to the Emergency Room, position changes did not help. She was given some antiemetics, but was still quite symptomatic. Therefore, she was referred for observation. Upon examination, the patient was photosensitive and had a migraine as well. She continued to have the nausea and therefore I treated her with not only antiemetics, but also placed on her Valium and Antivert. The next day, she had some stepwise improvement, but still had a little bit of nausea and was not feeling like her symptoms were completely resolved. Also, given the fact that she had a rash on her back, she was convinced that it was shingles. However, it did cross the midline. She is already on minocycline for rosacea, but I had Dr. Nguyen look at this and he suggested it could still potentially be a herpes infection. Therefore, he placed the patient on Valtrex. HSV titers were sent, but have not resulted as these are send-outs. I did have her on IV fluids so she was being hydrated via that route. On day of discharge, the patient is taking p.o. medications fairly well. She is still having some nausea at times. She is still having a little bit of dizziness, but she states that is improved as well. I did go ahead and do a CT scan of the brain to rule out any other potential causes. There is no bleed, no acute stroke at this time detected on CT. I also contacted her ENT doctor, Dr. Petty, that she says she saw the nurse practitioner there last year. They stated that her referral was actually and she would need another referral. Therefore, I talked to Dr. Matamoros' office and they stated they would put in another referral and get an appointment. Therefore, today I will discharge her on p.o. medications and she will followup with Dr. Matamoros and eventually with Dr. Petty once they get the referral placed. DISCHARGE MEDICATIONS: 1. Valium 5 mg p.o. q.6h. 2. Antivert 25 mg p.o. q.6h. 3. Prednisone taper. 4. Promethazine 25 mg q.6h. 5. Valtrex 1 gram p.o. b.i.d. These are in addition to her home medications. I have told her to hold her Xanax while she is taking Valium. I have also instructed her that if she does not have any improvement to call her primary care physician. Also, if she had any worsening of her symptoms, she could come back to the Emergency Room, if she developed a fever or any loss of consciousness, she should return to the Emergency Room. She is in agreement to go home at this point with p.o. medications. #[id number] [facility]
== END 2017-10-23 11:57 | disposition home or self-care (01) ==
LOC: ER 15:54 → MS 18:25
PROVIDERS: ADMIT Nurse Practitioner; ATTEND Nurse Practitioner
DX: H81.03 Meniere's disease, bilateral (principal); G43.909 Migraine, unspecified, not intractable, without status migrainosus; F41.9 Anxiety disorder, unspecified; L30.9 Dermatitis, unspecified; E86.9 Volume depletion, unspecified; G47.00 Insomnia, unspecified; K21.9 Gastro-esophageal reflux disease without esophagitis; Z79.899 Other long term (current) drug therapy
CPT/HCPCS: Q0169 ×4; J2550 ×3; J7030 ×4; A4216 ×3; J1100; 80053; 86695; 86696; 86694; 36415 ×3; 85025; 83735; 87529; 70450; 93005

== ENCOUNTER → 2018-01-13 | Outpatient (CLI) | payer BC | LOC: GMALS 17:23 | PROVIDERS: ATTEND Nurse Practitioner Acute Care | DX: D51.3 Other dietary vitamin B12 deficiency anemia (principal); N95.1 Menopausal and female climacteric states ==

== ENCOUNTER → 2018-10-21 | Outpatient (CLI) | payer BC | LOC: LAB.O 18:07 | PROVIDERS: ATTEND Nurse Practitioner Family | DX: R10.84 Generalized abdominal pain (principal); R06.02 Shortness of breath ==

== ENCOUNTER 2018-10-23 16:28 | Emergency (ER) | payer BC ==
[2018-10-23 16:59] VITALS: TEMP 99.2
--- NOTE | 2018-10-23 18:59 | CT ---
EXAM: Abdomen/Pelvis w/Contrast CLINICAL INDICATION: Abdominal pain. COMPARISON: 04/14/2015 TECHNIQUE: The CT scan was done using contiguous axial 5 mm postcontrast sections through the abdomen and pelvis including IV contrast. This exam was performed according to our departmental dose-optimization program, which includes automated exposure control, adjustment of the mA and/or kV according to patient size and/or use of iterative reconstruction technique. FINDINGS: The visualized portions of the lung bases contain areas of mild atelectasis but are otherwise clear. The liver, gallbladder, kidneys, adrenal glands, spleen, and pancreas have a normal CT appearance. The aorta is normal in caliber. No dilated loops of small bowel are seen. A small fat-containing umbilical hernia is noted. The uterus is surgically absent. There is no free air, free fluid, or abscess. Surgical changes from partial colectomy are noted. IMPRESSION: No evidence of an acute intra-abdominal process. Electronically signed by: Ananth Donald MD 10/23/2018 6:58 PM CDT
--- NOTE | 2018-10-23 19:23 | ED.PDOC ---
History of Present Illness - General Chief Complaint: General Stated Complaint: weakness,hemoglobin dropping Time Seen by Provider: 10/23/18 17:00 Source: patient Exam Limitations: no limitations - History of Present Illness Initial Comments: the patient is a 62-year-old female presenting to emergency room secondary to feeling weak and tired. She first presented at the clinic and was sent over here after a blood draw showed a 0.7 dropping her hematocrit. No evidence of any active GI bleeding clinically. No blood in the stools and no dark black stools. No vomiting blood. No easy bruising. The patient does have numerous long-term diagnoses and does take many sedating-type medications. She does obviously have some iron deficiency. She has had a bowel resection in the past that likely contributes. No obvious fever. No new nausea or vomiting. She has vague abdominal complaints in the epigastric area. She has had long- standing reflux issues. She has had long-standing cyclical vomiting issues. Has been several years since her last upper endoscopy and she is currently being scheduled for another by her primary care doctor. She is on a chronic pain pump with morphine. She does take numerous other sedating-type medicines. She is alert and oriented 4 though she is a little bit sleepy.CBC today is otherwise stable. She does have chronic iron deficiency which is evident. CBC CMP and UA performed 2 days ago were grossly within normal limits with the exception of the hemoglobin and hematocrit and MCV. Timing/Duration: unsure Severity: mild Improving Factors: nothing Worsening Factors: nothing Associated Symptoms: loss of appetite, malaise, nausea/vomiting - chronic, weakness - subjective Allergies/Adverse Reactions: Allergies NO KNOWN ALLERGY Allergy (Verified 10/21/17 22:14) Home Medications: Ambulatory Orders ARIPiprazole [Abilify] 5 mg PO BEDTIME 10/23/18 Desvenlafaxine Succinate [Pristiq] 50 mg PO DAILY 10/23/18 Furosemide [Lasix] 20 mg PO DAILY 10/23/18 Pantoprazole Sodium 40 mg PO BID 10/23/18 Potassium Chloride [K-Tab] 10 meq PO DAILY 10/23/18 Ranitidine HCl 150 mg PO BEDTIME 10/23/18 Trazodone HCl 100 mg PO BEDTIME 10/23/18 Triamterene & Hydrochlorothiaz [Triamterene/Hydrochloroth 75-50 mg] 1 tab PO DAILY 10/23/18 Review of Systems - Review of Systems Constitutional: States: malaise, weakness - subjective EENTM: States: no symptoms reported Respiratory: States: no symptoms reported Cardiology: States: no symptoms reported Gastrointestinal/Abdominal: States: see HPI Genitourinary: States: no symptoms reported Musculoskeletal: States: see HPI Skin: States: no symptoms reported Neurological: States: see HPI Endocrine: States: no symptoms reported All other Systems: No Change from Baseline Past Medical History (General) - Patient Medical History Hx Seizures: No Hx Stroke: No Hx Dementia: No Hx Asthma: No Hx of COPD: No Hx Cardiac Disorders: No Hx Congestive Heart Failure: No Hx Pacemaker: No Hx Hypertension: No Hx Diabetes: Yes Hx Gastroesophageal Reflux: Yes Hx Renal Disease: No Hx Cancer: No Hx of HIV: No Hx Hepatitis C: No Hx MRSA: No Surgical History: Hysterectomy - Vaccination History Hx Tetanus, Diphtheria Vaccination: No Hx Influenza Vaccination: Yes Hx Pneumococcal Vaccination: Yes - Social History Hx Tobacco Use: No Hx Chewing Tobacco Use: No Hx Alcohol Use: No Hx Substance Use: No Hx Substance Use Treatment: No Hx Depression: Yes - on celexa no suicidal thoughts Hx Physical Abuse: No Hx Emotional Abuse: No Hx Suspected Abuse: No - Female History Hx Last Menstrual Period: 07/01/84 Patient : No Family Medical History - Family History Mother Age (years): 42 Living Status: Hx Family Hypertension: Yes - dad Hx Cardiac Disease: Yes - heart attack at 42- Hx Family Diabetes: Yes - dad Hx Family Cancer: Yes - breast-mother,sister Hx Family;Other: sisters with breast cancer, brother and sister have diabetes. Father Living Status: Age at (years of age): 69 Cause of : complications from surgery Hx Family Hypertension: Yes Hx Cardiac Disease: Yes Hx Family Diabetes: Yes Physical Exam - Physical Exam General Appearance: Alert, No apparent distress Eye Exam: bilateral normal Ears, Nose, Throat: hearing grossly normal, normal ENT inspection Neck: full range of motion, supple Respiratory: lungs clear, normal breath sounds, no respiratory distress, no accessory muscle use Cardiovascular/Chest: normal peripheral pulses, regular rate, rhythm, no edema Peripheral Pulses: radial,right: 2+, radial,left: 2+, dorsalis pedis,right: 2+, dorsalis pedis,left: 2+ Gastrointestinal/Abdominal: soft, other - mild epigastric discomfort to palpation. She is morbidly obese. Rectal Exam: deferred Back Exam: no vertebral tenderness Extremity: normal range of motion, non-tender, normal inspection, no pedal edema, normal capillary refill Neurologic: coroner II-XII nml as tested, alert, normal mood/affect - flat affect, oriented x 3 Skin Exam: normal color Comments: Vital Signs - 8 hr 10/23/18 10/23/18 10/23/18 16:55 17:28 18:28 Temperature 99.2 F Pulse Rate [ 79 78 73 Left Brachial] Respiratory 20 16 16 Rate Blood Pressure 129/74 108/67 111/72 [Left Arm] O2 Sat by Pulse 95 95 95 Oximetry Progress - Progress Progress: 10/23/18 19:26 the patient is a 62-year-old female presenting to the emergency room secondary to abdominal discomfort along with fatigue raising the concern for the possibility of some form of a GI bleed. Clinically there is no evidence of any active bleeding. Her hemoglobin and hematocrit have been roughly stable for the last 2 days. It may be worth checking another one in 1 week. she does need to discuss with her primary care doctor on supplementation for her iron deficiency. She needs to keep her follow-up with GI for another scope in the near future. Her abdominal discomfort in the epigastric area may very well be due to the ventral hernia. There is no bowel entrapment but some omental entrapment may be causing her discomfort. The fatigue and feeling of generalized weakness is most likely due to numerous sedating-type medications. She does need to try and limit these over the next few days to let her system clear out and reset. She is to keep herself well hydrated. Follow back up with primary care doctor next week. ER warnings were given for any worsening. - Results/Orders Results/Orders: Laboratory Tests 10/23/18 18:00 BUN [address] of the abdomen and pelvis with contrast showed no evidence of any active bleed. No perforation. No acute processes otherwise. She does have chronic changes. She does have a small hernia containing fat in the epigastric area. Departure - Departure Clinical Impression: Ventral hernia Qualifiers: Obstruction and gangrene presence: without obstruction or gangrene Qualified Code(s): K43.9 - Ventral hernia without obstruction or gangrene Iron deficiency anemia Qualifiers: Iron deficiency anemia type: unspecified iron deficiency Qualified Code(s): D50.9 - Iron deficiency anemia, unspecified Disposition: Discharge to Home or Self Care Condition: Fair Departure Forms: ED Discharge - Pt. Copy, Patient Portal Self Enrollment Instructions: Anemia Caused by Low Iron, Adult (DC), Abdominal Hernia (DC) Diet: bland diet Activity: increase activity as tolerated Referrals: Ari Matamoros III, MD [Primary Care Provider] - 1-2 Weeks Home Medications: Ambulatory Orders ARIPiprazole [Abilify] 5 mg PO BEDTIME 10/23/18 Desvenlafaxine Succinate [Pristiq] 50 mg PO DAILY 10/23/18 Furosemide [Lasix] 20 mg PO DAILY 10/23/18 Pantoprazole Sodium 40 mg PO BID 10/23/18 Potassium Chloride [K-Tab] 10 meq PO DAILY 10/23/18 Ranitidine HCl 150 mg PO BEDTIME 10/23/18 Trazodone HCl 100 mg PO BEDTIME 10/23/18 Triamterene & Hydrochlorothiaz [Triamterene/Hydrochloroth 75-50 mg] 1 tab PO DAILY 10/23/18 Additional Instructions: the patient is a 62-year-old female presenting to the emergency room secondary to abdominal discomfort along with fatigue raising the concern for the possibility of some form of a GI bleed. Clinically there is no evidence of any active bleeding. Her hemoglobin and hematocrit have been roughly stable for the last 2 days. It may be worth checking another one in 1 week. she does need to discuss with her primary care doctor on supplementation for her iron deficiency. She needs to keep her follow-up with GI for another scope in the near future. Her abdominal discomfort in the epigastric area may very well be due to the ventral hernia. There is no bowel entrapment but some omental entrapment may be causing her discomfort. The fatigue and feeling of generalized weakness is most likely due to numerous sedating-type medications. She does need to try and limit these over the next few days to let her system clear out and reset. She is to keep herself well hydrated. Follow back up with primary care doctor next week. ER warnings were given for any worsening.
[2018-10-23 19:39] VITALS: BP 114/65; O2SAT 97
== END 2018-10-23 19:38 | disposition home or self-care (01) ==
LOC: ER 16:28
DX: D50.9 Iron deficiency anemia, unspecified (principal); K43.9 Ventral hernia without obstruction or gangrene; K21.9 Gastro-esophageal reflux disease without esophagitis; F32.9 Major depressive disorder, single episode, unspecified; E11.9 Type 2 diabetes mellitus without complications; G89.29 Other chronic pain; Z79.899 Other long term (current) drug therapy; Z79.891 Long term (current) use of opiate analgesic

== ENCOUNTER → 2018-10-25 | Outpatient (CLI) | payer BC | LOC: LAB.O 09:54 | PROVIDERS: ATTEND Nurse Practitioner Family | DX: R53.83 Other fatigue (principal); D64.9 Anemia, unspecified ==

== ENCOUNTER → 2018-11-17 | Outpatient (CLI) | payer BC ==
--- NOTE | 2018-11-17 13:25 | MRI ---
EXAM DESCRIPTION: Brain w/wo Contrast CLINICAL HISTORY: VERTIGO COMPARISON: CT head October 23, 2017 TECHNIQUE: MRI of the brain is performed according to our usual protocol including multiplanar multi sequence technique. Post gadolinium imaging is performed following IV administration of routine adult dose of IV gadolinium contrast. FINDINGS: Sagittal T1 images show intact corpus callosum. Normal pituitary gland with normal T1 appearance of the kylie and medulla and upper cervical cord. Normal signal intensity within the clivus and calvarium. Axial T2 fat sat images reveal preservation of intracranial vascular flow voids. Normal alonzo matter and white matter T2 signal intensity. Normal ventricles with normal gyral and sulcal fold pattern. The globes appear intact and symmetrical. No abnormal fluid signal in the paranasal sinuses, tympanic cavities or mastoid air cells. BI-RADS axial T2 images through the temporal bones reveal normal inner ear structures with normal symmetrical internal auditory canals. No intracanalicular mass or cerebellopontine angle mass. Axial flair images show a few scattered foci of increased signal intensity in the subcortical and central white matter of both cerebral hemispheres consistent with mild chronic microvascular ischemic change. Diffusion weighted images are negative for focal intense increased signal intensity in the brain parenchyma to suggest restricted diffusion. ADC mapping is negative. Axial T1 precontrast images show normal alonzo-white matter differentiation. No high signal intensity hemorrhagic lesion of the brain parenchyma. No subdural hematoma. Coronal and axial thin slice T1 images before contrast show normal appearance of the internal auditory canals and cerebellopontine angles. Axial susceptibility weighted images are negative for focal signal loss to suggest abnormal brain parenchymal calcification or hemosiderin deposition. Coronal T2 and FLAIR images confirm the findings. Normal appearance of the pituitary gland on the coronal images. After IV contrast, axial T1 images show normal enhancement of intracranial vessels. No enhancing intracranial mass or abnormal parenchymal enhancement to suggest disruption of the blood brain barrier. Coronal T1 postcontrast images show normal dural sinus enhancement with normal enhancement of the pituitary gland. Thin slice post contrast T1 images show no evidence of enhancing intracanalicular lesion. No vascular anomaly or enhancing mass of the cerebellopontine angles. IMPRESSION: No acute intracranial pathologic process. Electronically signed by: Andrew Root MD 11/17/2018 1:23 PM CDT
== END ==
LOC: MRI 11:15
PROVIDERS: ATTEND Family Medicine
DX: H91.23 Sudden idiopathic hearing loss, bilateral (principal); H81.10 Benign paroxysmal vertigo, unspecified ear

== ENCOUNTER → 2018-11-18 | Outpatient (CLI) | payer BC | LOC: GMAJS 10:15 | PROVIDERS: ATTEND Physician Assistant | DX: R53.83 Other fatigue (principal); R42 Dizziness and giddiness ==

== ENCOUNTER → 2018-11-19 | Outpatient (CLI) | payer BC | LOC: GMAL 17:28 | PROVIDERS: ATTEND Family Medicine | DX: R53.83 Other fatigue (principal) ==

== ENCOUNTER → 2019-03-04 | Outpatient (CLI) | payer BC | LOC: GMAL 11:02 | PROVIDERS: ATTEND Family Medicine | DX: D50.8 Other iron deficiency anemias (principal) ==

== ENCOUNTER → 2019-04-22 | Outpatient (CLI) | payer SELFPAY | LOC: GMAL 16:46 | PROVIDERS: ATTEND Family Medicine | DX: D64.9 Anemia, unspecified (principal) ==

== ENCOUNTER → 2019-05-07 | Outpatient (CLI) | payer OTHER ==
--- NOTE | 2019-05-07 15:31 | RAD ---
EXAM DESCRIPTION: Hip,Right 2 Views (accession [id number]), Pelvis (accession [id number]) CLINICAL HISTORY: 63 years Female, PAIN IN RIGHT HIP COMPARISON: None. Findings: Three views/radiographs Location: Right hip/pelvis No acute fracture or dislocation. Partially imaged stimulator device. Numerous surgical clips overlie the pelvis. Pelvic phleboliths. Mild bilateral hip osteoarthritis. Degenerative changes in the sacroiliac joints. Partially imaged lower lumbar spondylosis. IMPRESSION: Chronic and degenerative changes. No acute osseous abnormality identified. Electronically signed by: Niels Nowak MD 05/07/2019 3:29 PM [facility]
--- NOTE | 2019-05-07 15:31 | RAD ---
EXAM DESCRIPTION: Hip,Right 2 Views (accession [id number]), Pelvis (accession [id number]) CLINICAL HISTORY: 63 years Female, PAIN IN RIGHT HIP COMPARISON: None. Findings: Three views/radiographs Location: Right hip/pelvis No acute fracture or dislocation. Partially imaged stimulator device. Numerous surgical clips overlie the pelvis. Pelvic phleboliths. Mild bilateral hip osteoarthritis. Degenerative changes in the sacroiliac joints. Partially imaged lower lumbar spondylosis. IMPRESSION: Chronic and degenerative changes. No acute osseous abnormality identified. Electronically signed by: Niels Nowak MD 05/07/2019 3:29 PM [facility]
== END ==
LOC: RAD 09:01
PROVIDERS: ATTEND Orthopaedic Surgery
DX: M16.0 Bilateral primary osteoarthritis of hip (principal); M47.898 Other spondylosis, sacral and sacrococcygeal region; M47.896 Other spondylosis, lumbar region

== ENCOUNTER → 2019-07-02 | Outpatient (CLI) | payer BC, OTHER ==
--- NOTE | 2019-07-02 15:56 | MRI ---
Study: MRI of the Right Hip. Indication: TENDON RUPTURE HIP Technique: Multiplanar, multi sequence MRI of the right hip was obtained without intravenous contrast. Comparison: None. Findings: Mixed grade 2 and 3 chondrosis of the majority of the right hip joint with subtle grade 4 chondral loss posteriorly. Tiny joint line osteophytes. Tiny joint effusion. No acute fracture or osteonecrosis. Truncation and degeneration anterior superior aspects of the right hip labrum. Tendinosis bilateral hamstring tendon origins and bilateral gluteus minimus/medius tendon insertions. Mild bilateral greater trochanter bursal edema. No high-grade pelvic tendon tear. Lower lumbar disc disease. Impression: [id number] right hip osteoarthritis with associated anterior superior labral degeneration. No acute fracture or osteonecrosis. Additional findings as above. Electronically signed by: Edvin Benites MD 07/02/2019 3:55 PM [facility]
== END ==
LOC: MRI 10:11
PROVIDERS: ATTEND Orthopaedic Surgery
DX: S76.011D Strain of muscle, fascia and tendon of right hip, subsequent encounter (principal); M16.11 Unilateral primary osteoarthritis, right hip; M70.62 Trochanteric bursitis, left hip; M77.9 Enthesopathy, unspecified

== ENCOUNTER → 2019-07-06 | Outpatient (CLI) | payer BC ==
--- NOTE | 2019-07-07 08:13 | RAD ---
EXAM DESCRIPTION: Knee,Left Complete CLINICAL HISTORY: KNEE PAIN COMPARISON: None. IMPRESSION: 4 standing views of the left knee show no acute fracture, focal bone destruction, or joint dislocation. Moderate narrowing of the tibiofemoral compartment with mild joint line osteophytes suggesting moderate osteoarthritic changes. Mild lateral positioning of the tibia relative to the distal femur is seen. Mild posterior superior and inferior osteophytes of the patella are seen compatible with mild osteoarthritic changes of the patellofemoral compartment. Soft tissues are unremarkable. No significant joint effusion is seen. Electronically signed by: Dallas Stevenson MD 07/07/2019 8:11 AM [facility]
--- NOTE | 2019-07-07 08:14 | RAD ---
XR KNEE 4 OR MORE VIEWS HISTORY: 63 years Female KNEE PAIN COMPARISON: None. TECHNIQUE: 4 views of the right knee. IMPRESSION: Bones: No acute fracture. No focal osseous lesion detected. Joints: Mild narrowing of the lateral knee joint compartment. Moderate narrowing of the medial knee joint compartment. Mild osteophytosis at the medial compartment and patellofemoral articulation. Soft tissues: Small suprapatellar joint effusion suspected. Otherwise no diagnostic soft tissue abnormality. Electronically signed by: Vinny Lake MD 07/07/2019 8:13 AM [facility]
== END ==
LOC: RAD 12:10
PROVIDERS: ATTEND Orthopaedic Surgery
DX: M25.861 Other specified joint disorders, right knee (principal); M25.761 Osteophyte, right knee; M25.461 Effusion, right knee; M25.862 Other specified joint disorders, left knee; M25.762 Osteophyte, left knee

== ENCOUNTER 2019-07-20 05:34 | Day surgery (SDC) | payer BC ==
[2019-07-20] MEDS ORDERED: LIDOCAINE 1% W/ EPINEPHRINE 20 ML VIAL INJ ONE (07:07)
[2019-07-20] MEDS ORDERED: methylPREDNISolone ACETATE 80 MG/ML VIAL ONE (07:07)
[2019-07-20] MEDS ORDERED: BUPIVACAINE 0.25% INJ 30 ML VIAL INJ ONE (07:07)
[2019-07-20] MEDS: LACTATED RINGERS 1,000 ML ONE (07:55)
[2019-07-20] MEDS: BUPIVACAINE 0.25% INJ 30 ML VIAL INJ ONE ×2 (08:06→08:40)
[2019-07-20] MEDS: LIDOCAINE 1% W/ EPINEPHRINE 20 ML VIAL INJ ONE ×2 (08:07→08:40)
[2019-07-20] MEDS: methylPREDNISolone ACETATE 80 MG/ML VIAL IM ONE ×2 (08:07→08:40)
[2019-07-20] MEDS: ONDANSETRON INJ 4 MG/2 ML VIAL ONE (08:57)
[2019-07-20] MEDS ORDERED: LIDOCAINE 1% 10 ML VIAL INJ ONE (10:00)
[2019-07-20] MEDS ORDERED: PROPOFOL 200 MG/20 ML VIAL IV ONE (10:00)
[2019-07-20 10:13] VITALS: BP 109/64; TEMP 97.8; O2SAT 96
--- NOTE | 2019-07-22 13:15 | OP ---
DATE OF PROCEDURE: 07/20/19 PREOPERATIVE DIAGNOSIS: 1. Right hip pain. 2. Right hip osteoarthritis. POSTOPERATIVE DIAGNOSIS: 1. Right hip pain. 2. Right hip osteoarthritis. PROCEDURE: 1. Injection under anesthesia. SURGEON: Eulogio Owens MD. CLINICAL REIMBURSEMENT SPECIALIST: Rene Bhakta CST, SA-C. ANESTHESIA: Conscious sedation. COMPLICATIONS: None. FINDINGS: Arthritis of the hip. Otherwise, normal anatomy. INDICATION: Ms. Jaramillo has a history of hip pain. She has had multiple interventions, however, has failed to gain relief. Because of her ongoing pain and ongoing dysfunction, she has requested injection. After discussing the risks, benefits and alternatives to that, the patient has given informed consent for that. PROCEDURE: The patient was brought to the Operating Room and placed in supine position. Conscious sedation was administered and the leg was flexed, abducted and externally rotated. The groin was prepped and fluoroscopic imaging was used to confirm needle placement into the hip joint through a medial portal. Once placement had been confirmed, a combination of lidocaine and Depo-Medrol were injected into the joint. After injection, the needle was withdrawn. Pressure was held on the injection site. A sterile band-aid was placed. The patient was then taken back to the Day Surgery Unit. POSTOPERATIVE PLAN: The patient will be weight-bearing as tolerated. The patient will followup with us in about 2 weeks. #[id number] MTDD
== END 2019-07-20 10:00 | disposition home or self-care (01) ==
LOC: AMB 05:34
PROVIDERS: ATTEND Orthopaedic Surgery
DX: M16.11 Unilateral primary osteoarthritis, right hip (principal); E11.9 Type 2 diabetes mellitus without complications; D64.9 Anemia, unspecified; F41.9 Anxiety disorder, unspecified; F32.9 Major depressive disorder, single episode, unspecified; K21.9 Gastro-esophageal reflux disease without esophagitis; G43.909 Migraine, unspecified, not intractable, without status migrainosus; Z90.710 Acquired absence of both cervix and uterus; Z79.84 Long term (current) use of oral hypoglycemic drugs; Z79.899 Other long term (current) drug therapy

== ENCOUNTER → 2019-08-03 | Outpatient (CLI) | payer BC ==
--- NOTE | 2019-08-03 17:54 | RAD ---
EXAM DESCRIPTION: Foot,Right 3 Views CLINICAL HISTORY: FOOT PAIN COMPARISON: None. TECHNIQUE: 3 views right FINDINGS: I see no evidence of fracturing. A plantar calcaneal spur is noted. A ring is observed on the second digit. IMPRESSION: Minimal degenerative changes observed. No fracturing is detected. Electronically signed by: Ari Lang MD 08/03/2019 5:53 PM [facility]
== END ==
LOC: RAD 11:07
PROVIDERS: ATTEND Orthopaedic Surgery
DX: M19.071 Primary osteoarthritis, right ankle and foot (principal)

== ENCOUNTER → 2019-10-12 | Outpatient (CLI) | payer BC ==
--- NOTE | 2019-10-12 14:18 | MRI ---
EXAM DESCRIPTION: MRI Lower Extremity,Right CLINICAL HISTORY: Evaluate for OSTEOMYELITIS, sore/ulceration at bottom of heel, nonhealing. COMPARISON: Foot radiograph 08/03/2019. TECHNIQUE: MRI of the right foot is performed with multiplanar multi sequence imaging. No intravenous contrast was given. FINDINGS: Mild soft tissue edema is suggested along the posterior aspect of the calcaneus (for example series 6 on image eight). No focal bone marrow edema or bone marrow replacement process to suggest osteomyelitis. The bone marrow signal of the visualized foot and ankle is normal. No focal bone contusion or fracture. Small ankle joint effusion. No drainable fluid collection or abscess. The visualized peroneal, flexor, and extensor tendons are intact without focal tear or tenosynovitis. The distal Achilles tendon and plantar aponeurosis is intact. Small plantar calcaneal enthesophyte. The medial lateral ankle ligaments are intact. IMPRESSION: 1. Mild soft tissue edema along the posterior aspect of the calcaneus. 2. No osteomyelitis of the right foot/ankle on MRI. Electronically signed by: Nabeel Greenwood DO 10/12/2019 2:17 PM CDT
== END ==
LOC: MRI 13:09
PROVIDERS: ATTEND Orthopaedic Surgery
DX: R60.9 Edema, unspecified (principal)

== ENCOUNTER → 2019-10-15 | Outpatient (CLI) | payer BC | LOC: GMAL 15:22 | PROVIDERS: ATTEND Family Medicine | DX: D64.9 Anemia, unspecified (principal); E11.9 Type 2 diabetes mellitus without complications; E78.2 Mixed hyperlipidemia; D51.3 Other dietary vitamin B12 deficiency anemia; R30.0 Dysuria; Z79.899 Other long term (current) drug therapy ==

== ENCOUNTER 2019-10-20 06:00 | Day surgery (SDC) | payer BC ==
[2019-10-20] MEDS ORDERED: PROPOFOL 200 MG/20 ML VIAL IV ONE (06:01)
[2019-10-20] MEDS ORDERED: DEXAMETHASONE INJ 10 MG/ML VIAL IV ONE (06:01)
[2019-10-20] MEDS ORDERED: LIDOCAINE 1% 10 ML VIAL INJ ONE (06:01)
[2019-10-20] MEDS ORDERED: SODIUM CHLORIDE 0.9% 50 ML VIAL INJ ONE (06:01)
[2019-10-20] MEDS ORDERED: MAGNESIUM SULFATE INJ 1 GM/2 ML VIAL IVPB ONE (06:01)
[2019-10-20] MEDS ORDERED: LACTATED RINGERS 1,000 ML ONE (06:10)
[2019-10-20] MEDS ORDERED: ceFAZolin SODIUM 1 GM VIAL ONE ×2 (06:10→06:31)
[2019-10-20] MEDS ORDERED: SODIUM CHL 0.9% 100ML MINI-BAG 100 ML IVPB ONE (06:11)
[2019-10-20] MEDS ORDERED: LIDOCAINE 1% W/ EPINEPHRINE 20 ML VIAL INJ ONE (06:31)
[2019-10-20] MEDS ORDERED: VANCOMYCIN HCL INJ 1,000 MG VIAL IVPB ONE ×3 (06:31→07:28)
[2019-10-20] MEDS ORDERED: BUPIVACAINE 0.25% W/EPI 50 ML VIAL INJ ONE (06:31)
[2019-10-20] MEDS ORDERED: fentaNYL CITRATE INJ 50 MCG/ML 2 ML AMP ONE (06:36)
[2019-10-20] MEDS ORDERED: DEXMEDETOMIDINE HCL 200 MCG/2 ML INJ IV ONE (06:36)
[2019-10-20] MEDS ORDERED: KETAMINE HCL 100 MG/ML VIAL ONE (06:36)
[2019-10-20] MEDS ORDERED: MIDAZOLAM INJ 5 MG/5 ML VIAL ONE (06:36)
[2019-10-20] MEDS ORDERED: LIDOCAINE 1% 50 ML VIAL INJ ONE ×2 (06:39→06:50)
[2019-10-20] MEDS ORDERED: BUPIVACAINE 0.25% INJ 30 ML VIAL INJ ONE ×2 (06:39→06:50)
[2019-10-20] MEDS ORDERED: ROCURONIUM BROMIDE 10 MG/ML VIAL ONE (06:41)
[2019-10-20] MEDS ORDERED: SCOPOLAMINE PATCH 1.5MG 1 EA TD ONE (06:44)
[2019-10-20] MEDS ORDERED: ceFAZolin SODIUM 1 GM VIAL IRRIG ONE (06:50)
[2019-10-20] MEDS ORDERED: SUGAMMADEX SODIUM 200 MG/2 ML VIAL IV ONE (06:51)
[2019-10-20] MEDS ORDERED: SODIUM CHLORIDE 0.9% 250ML 250 ML ONE (07:28)
[2019-10-20] MEDS ORDERED: LEVALBUTEROL NEBS 1.25 MG/3 ML VIAL NEB ONE (08:03)
[2019-10-20] MEDS ORDERED: ONDANSETRON INJ 4 MG/2 ML VIAL ONE (08:05)
[2019-10-20] MEDS ORDERED: HYDROcodone 5MG/APAP 325MG 1 EA TAB ONE (08:50)
[2019-10-20 09:53] VITALS: BP 109/41; TEMP 97.6; O2SAT 94
--- NOTE | 2019-10-21 08:26 | OP ---
DATE OF PROCEDURE: 10/20/19 PREOPERATIVE DIAGNOSIS: 1. 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 POSTOPERATIVE DIAGNOSIS: 1. 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 PROCEDURE: 1. I&D of wound. SURGEON: Eulogio Owens MD. CONFECTIONERY LABORATORY MANAGER: Rene Bhakta CST, SA-C. ANESTHESIA: General anesthesia. COMPLICATIONS: None. FINDINGS: Chronic wound without evidence of osteomyelitis on the posterior aspect of the calcaneus. INDICATION: Ms. Jaramillo has a history of a wound on the posterior aspect of the calcaneus that has been intermittently draining for months. She has had difficulty getting this to heal and we talked about options. An MRI did not reveal any evidence of osteomyelitis in the area. At this point, her options would be I&D versus detachment of the tendon with removal of posterior calcaneal bone. After discussing the risks, benefits and alternatives to operative therapy, informed was obtained for I&D. PROCEDURE: The patient was brought to the Operating Room and placed in supine position. General anesthesia was induced and she was placed in the left lateral decubitus position. That did provide adequate access. The leg was sterilely prepped and draped and following prepping and draping, an elliptical incision was made vertically around the wound tract. That incision was made for reasons of possible further intervention should this not take care of her issue. The entirety of the sinus tract was removed and following that, dissection was carried down and a small amount posterior calcaneal spur was removed. This did not affect the integrity of the Achilles tendon. The wound was very thoroughly irrigated and it was noted that the skin edges were healthy and bleeding. The wound was approximated without any tension. Sterile dressings were placed and the patient was awoken from anesthesia. POSTOPERATIVE PLAN: She will be weightbearing as tolerated, but she will be using a boot or shoe without any pressure on the posterior aspect of the calcaneus. She will followup with us in about two days. #[id number] MTDD
== END 2019-10-20 09:50 | disposition home or self-care (01) ==
LOC: AMB 06:00
PROVIDERS: ATTEND Orthopaedic Surgery
DX: L98.8 Other specified disorders of the skin and subcutaneous tissue (principal); E11.9 Type 2 diabetes mellitus without complications; E07.9 Disorder of thyroid, unspecified; K21.9 Gastro-esophageal reflux disease without esophagitis; F41.9 Anxiety disorder, unspecified; F32.9 Major depressive disorder, single episode, unspecified; G43.909 Migraine, unspecified, not intractable, without status migrainosus; M19.90 Unspecified osteoarthritis, unspecified site; Z79.84 Long term (current) use of oral hypoglycemic drugs; Z79.899 Other long term (current) drug therapy
CPT/HCPCS: 00400; 17999; 36416; 80307; 82948; 87070; 87205; A4216; J0690; J1100; J2250; J2405; J3010; J3370; J3475; J3490; J7050; J7120; J7614

== ENCOUNTER 2019-12-03 10:34 | Emergency (ER) | payer BC ==
[2019-12-03] MEDS ORDERED: ONDANSETRON ODT 8 MG TAB SL ONE (10:43)
[2019-12-03] MEDS ORDERED: MORPHINE SULFATE INJ 10 MG/ML VIAL IV ONE ×2 (10:43→12:13)
[2019-12-03] MEDS ORDERED: ALUM & MAG HYDROX-SIMETHICONE 30 ML, LIDOCAINE VISCOUS 2% 15 ML PO ONE ×2 (10:43)
[2019-12-03] MEDS ORDERED: SUCRALFATE 1 GM/10 ML 1 GM UD PO ONE ×2 (10:46→13:12)
--- NOTE | 2019-12-03 11:12 | RAD ---
EXAM DESCRIPTION: Obstructive series, 3 radiographs CLINICAL HISTORY: Substernal chest pain. Epigastric pain for 3 days FINDINGS/ IMPRESSION: Paucity of bowel gas. Both large and small intestinal bowel gas without luminal distention to diagnose bowel obstruction. No evidence of pneumatosis or free intraperitoneal air No organomegaly or obvious abdominal mass lesion. No calcification to suggest renal or gallstones No pulmonary edema, infiltrate or effusion. Heart size top limits normal. Normal mediastinal contours Electronically signed by: Marbin Langston MD 12/03/2019 11:11 AM CDT
[2019-12-03] MEDS ORDERED: ALUMINUM & MAGNESIUM HYDROXIDE 30 ML UD PO ONE (11:46)
[2019-12-03] MEDS ORDERED: PANTOPRAZOLE SODIUM IV 40 MG VIAL IV ONE (11:46)
[2019-12-03] MEDS ORDERED: SODIUM CHLORIDE 0.9% 1000ML 1,000 ML IVS ONE (12:18)
--- NOTE | 2019-12-03 13:07 | CT ---
EXAM DESCRIPTION: Abdomen/Pelvis w/Contrast CLINICAL HISTORY: 64 years Female, severe epigastric adn substernal pain TECHNIQUE: This exam was performed according to our departmental dose-optimization program, which includes automated exposure control, adjustment of the mA and/or kV according to patient size and/or use of iterative reconstruction technique. COMPARISON: 10/23/2018 FINDINGS: Bibasilar volume loss. No focal consolidation or suspicious pulmonary nodule. Hepatic steatosis. No suspicious hepatic lesion. No biliary dilatation. The gallbladder is unremarkable. The portal vein is patent. The spleen, pancreas and adrenal glands are unremarkable. Punctate nonobstructing left renal calculus. Symmetric renal parenchymal enhancement. No hydronephrosis. No obstructing ureteral stone. Unremarkable bladder. Hysterectomy. No suspicious adnexal mass. Subtotal colectomy. No evidence of bowel obstruction or focal inflammatory change. No adenopathy. No focal fluid collection. No free air. Normal caliber abdominal aorta. Dorsal column stimulator. No acute or suspicious osseous abnormality. Scattered degenerative changes present. IMPRESSION: No evidence of acute process in the abdomen or pelvis. Electronically signed by: Niels Nowak MD 12/03/2019 1:06 PM CDT
[2019-12-03] MEDS ORDERED: PROMETHAZINE HCL INJ 25 MG in SODIUM CHLORIDE 0.9% 50ML 50 ML IVPB ONE (13:22)
[2019-12-03] MEDS ORDERED: SCOPOLAMINE PATCH 1.5MG 1 EA TD ONE (14:48)
--- NOTE | 2019-12-03 14:49 | ED.PDOC ---
History of Present Illness - General Chief Complaint: Chest Pain/AK Time Seen by Provider: 12/03/19 10:35 Source: patient Exam Limitations: no limitations - History of Present Illness Initial Comments: The patient is a 64-year-old female presented emergency room secondary to epigastric and chest pain. This is been going on about 3 days and has been progressively getting worse. It is associated with severe reflux as well as some vomiting. No fevers. Mild shortness of breath when the pain is at its worst. She does have a longstanding history of reflux and does take omeprazole. Additionally she has had a history of stomach ulcers in the past. No vomiting of blood. No weight loss. No syncope or near syncope. No significant history of coronary artery disease. No palpitations. The patient is very anxious upon arrival. She rates her pain initially up around a 9 out of 10. Pain is almost entirely relieved briefly with a GI cocktail. Pain does return but less severe once the cocktail wears off. Timing/Duration: other - 3 days Severity: severe Improving Factors: medication Worsening Factors: eating Associated Symptoms: chest pain, loss of appetite, nausea/vomiting Allergies/Adverse Reactions: Allergies NO KNOWN ALLERGY Allergy (Verified 10/15/19 11:11) Home Medications: Ambulatory Orders Desvenlafaxine Succinate [Pristiq] 50 mg PO BEDTIME 10/23/18 Furosemide [Lasix] 20 mg PO DAILY 10/23/18 Albuterol Sulfate Nebs [Proventil Nebs] 2.5 mg INH PRN PRN 07/17/19 Atorvastatin Calcium [Lipitor] 20 mg PO BEDTIME 07/17/19 Tlbfnzyykk-Uztmnokqzbobl-Cwnfb [Butalbital/Acetaminophen/] 1 cap PO PRN PRN 07/17/19 Cyanocobalamin Inj [Vitamin B-12 Inj] 1 ml IM ONCE 07/17/19 Meloxicam [Mobic] 15 mg PO DAILY 07/17/19 Metformin HCl [Metformin Hydrochloride E] 500 mg PO BID 07/17/19 Phentermine HCl [Adipex-P] 1 tablet PO DAILY 07/17/19 Promethazine Tab [Phenergan Tablet] 25 mg PO PRN PRN 07/17/19 Fenofibrate [Tricor] 48 mg PO DAILY 10/15/19 Fluconazole [Diflucan Tab] 100 mg PO DAILY 10/15/19 Thyroid [Grapple Crew Leader Thyroid 30] 30 mg PO DAILY 10/15/19 Trazodone HCl [Trazodone Hydrochloride] 50 mg PO BEDTIME 10/15/19 Famotidine 20 mg PO BID #60 tab 12/03/19 Omeprazole 40 mg PO BID #60 cap 12/03/19 Ondansetron Odt [Zofran ODT] 4 mg PO Q8HR PRN #5 tab 12/03/19 Sucralfate Tab [Carafate Tab] 1 gm PO QID #120 tab 12/03/19 Review of Systems - Review of Systems Constitutional: States: no symptoms reported EENTM: States: no symptoms reported Respiratory: States: short of breath Cardiology: States: chest pain Gastrointestinal/Abdominal: States: abdominal pain, nausea, vomiting Genitourinary: States: no symptoms reported Musculoskeletal: States: no symptoms reported Skin: States: no symptoms reported Neurological: States: anxiety Endocrine: States: no symptoms reported All other Systems: No Change from Baseline Past Medical History (General) - Patient Medical History Hx Seizures: No Hx Stroke: No Hx Dementia: No Hx Asthma: No Hx of COPD: No Hx Cardiac Disorders: No Hx Congestive Heart Failure: No Hx Pacemaker: No Hx Hypertension: No Hx Thyroid Disease: No Hx Diabetes: Yes Hx Gastroesophageal Reflux: Yes Hx Renal Disease: No Hx Cancer: No Hx of HIV: No Hx Hepatitis C: No Hx MRSA: No Surgical History: colectomy, Hysterectomy, other - Vaccination History Hx Tetanus, Diphtheria Vaccination: No Hx Influenza Vaccination: Yes Hx Pneumococcal Vaccination: Yes - Social History Hx Tobacco Use: No Hx Chewing Tobacco Use: No Hx Alcohol Use: No Hx Substance Use: No Hx Substance Use Treatment: No Hx Depression: Yes - on celexa no suicidal thoughts Hx Physical Abuse: No Hx Emotional Abuse: No Hx Suspected Abuse: No - Female History Hx Last Menstrual Period: 07/01/84 Patient : No Family Medical History - Family History Mother Age (years): 42 Living Status: Hx Family Hypertension: Yes - dad Hx Cardiac Disease: Yes - heart attack at 42- Hx Family Diabetes: Yes - dad Hx Family Cancer: Yes - breast-mother,sister Hx Family;Other: sisters with breast cancer, brother and sister have diabetes. Father Living Status: Age at (years of age): 69 Cause of : complications from surgery Hx Family Hypertension: Yes Hx Cardiac Disease: Yes Hx Family Diabetes: Yes Physical Exam - Physical Exam General Appearance: Alert, Anxious, Obvious distress Eye Exam: bilateral normal Ears, Nose, Throat: hearing grossly normal, normal pharynx Neck: full range of motion, supple Respiratory: lungs clear, normal breath sounds, no respiratory distress, no accessory muscle use Cardiovascular/Chest: normal peripheral pulses, regular rate, rhythm, no edema Peripheral Pulses: radial,right: 2+, radial,left: 2+, dorsalis pedis,right: 2+, dorsalis pedis,left: 2+ Gastrointestinal/Abdominal: soft, other - Epigastric tenderness to palpation. No definite rebound. No definite palpable mass. Moderately obese. 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, alert, normal mood/affect - The patient is highly anxious regarding what is going on, oriented x 3 Skin Exam: normal color Comments: Vital Signs - 24 hr 12/03/19 12/03/19 12/03/19 10:34 11:30 12:00 Temperature 99.5 F 98.6 F Pulse Rate Pulse Rate [ 84 78 77 right brachial] Respiratory 24 12 16 Rate Blood Pressure 133/108 114/76 117/72 [right brachial ] O2 Sat by Pulse 91 L 95 94 L Oximetry 12/03/19 13:00 Temperature 98.6 F Pulse Rate 78 Pulse Rate [ 78 right brachial] Respiratory 15 Rate Blood Pressure 116/67 [right brachial ] O2 Sat by Pulse 93 L Oximetry Progress - Progress Progress: 12/03/19 14:51 The patient is a 64-year-old female presented emergency room with significant gastritis and esophagitis that is been worsening over the last 3 days. 2 sets of cardiac enzymes along with reassuring EKGs indicated that this is not likely coming from the heart. Vital signs have remained stable. The patient has responded very positively to GI medications here. The patient is going to be written for Carafate 4 times daily as well as omeprazole and famotidine twice daily. Additionally I want her to potato picker liquid Maalox or liquid Mylanta to use as needed for symptom control over the next couple of days. She needs to sleep with the head of her bed elevated. Additionally she needs to avoid hot or spicy foods, large meals, nicotine or caffeine. Additionally if she has any lactose intolerance she needs to avoid dairy for the short-term. I do want her to follow-up with her primary care doctor early next week otherwise. The patient is going to be discharged with a scopolamine patch in place. If she is exhibiting any evidence of confusion or altered behavior then this should be removed. Patient will additionally be written for some Zofran for as needed use to control any additional nausea or vomiting. ER warnings are given for any significant worsening. Obviously if symptoms are returning or worsening with the above management then additional work-up may be warranted. [email or web address] daniels [phone] - Results/Orders Results/Orders: Chest x-ray shows no acute pathology. No significant infiltrate. No significant cardiomegaly. No evidence of overt fluid overload. EKG shows normal sinus rhythm 82 bpm. Normal axis. Normal R wave progression. No ST segment or T wave changes indicative of acute ischemia. Telemetry shows normal sinus rhythm. Laboratory Tests 12/03/19 12/03/19 12/03/19 10:45 10:45 10:45 WBC 5.8 RBC 4.98 Hgb 14.7 Hct 44.0 MCV 88.5 MCH 29.6 MCHC 33.4 RDW 12.7 Plt Count 347 MPV 7.8 Absolute Neuts (auto) 3.30 Absolute Lymphs (auto) 2.00 Absolute Monos (auto) 0.30 Absolute Eos (auto) 0.20 Absolute Basos (auto) 0.00 Neutrophils % 56.4 Lymphocytes % 35.2 Monocytes % 4.9 Eosinophils % 2.8 Basophils % 0.7 PT 9.9 INR 1.00 PTT (SP) 24.7 D-Dimer, Quantitative < 131 L Sodium 139 Potassium 3.7 Chloride 100 L Carbon Dioxide 31 Anion Gap 11.7 L BUN 8 Creatinine 0.74 BUN/Creatinine Ratio 10.8 Random Glucose 103 Serum Osmolality 276.1 Calcium 9.8 Magnesium 1.8 Total Bilirubin 0.5 AST 32 ALT 39 Alkaline Phosphatase 102 Creatine Kinase 54 CK-MB (CK-2) 1.4 CK-MB (CK-2) % Not Reportable Troponin I < 0.02 B-Natriuretic Peptide 7.9 Serum Total Protein 7.4 Albumin 4.0 Globulin 3.4 Albumin/Globulin Ratio 1.2 Amylase 35 Lipase 26 12/03/19 13:52 WBC RBC Hgb Hct MCV MCH MCHC RDW Plt Count MPV Absolute Neuts (auto) Absolute Lymphs (auto) Absolute Monos (auto) Absolute Eos (auto) Absolute Basos (auto) Neutrophils % Lymphocytes % Monocytes % Eosinophils % Basophils % PT INR PTT (SP) D-Dimer, Quantitative Sodium Potassium Chloride Carbon Dioxide Anion Gap BUN Creatinine BUN/Creatinine Ratio Random Glucose Serum Osmolality Calcium Magnesium Total Bilirubin AST ALT Alkaline Phosphatase Creatine Kinase 42 CK-MB (CK-2) 1.0 CK-MB (CK-2) % Not Reportable Troponin I < 0.02 B-Natriuretic Peptide Serum Total Protein Albumin Globulin Albumin/Globulin Ratio Amylase Lipase CT scan of the abdomen pelvis with IV contrast showed no acute pathology. There are chronic changes. See report for details. Departure - Departure Clinical Impression: Esophagitis Gastritis Qualifiers: Gastritis type: unspecified gastritis Chronicity: acute Gastritis bleeding: without bleeding Qualified Code(s): K29.00 - Acute gastritis without bleeding Disposition: Discharge to Home or Self Care Condition: Fair Departure Forms: ED Discharge - Pt. Copy, Patient Portal Self Enrollment Instructions: Acid Reflux and GERD in Adults (DC) Diet: bland diet Activity: increase activity as tolerated Referrals: Ari Matamoros III, MD [Primary Care Provider] - 1-2 Weeks Prescriptions: Ondansetron Odt [Zofran ODT] 4 mg PO Q8HR PRN #5 tab PRN Reason: Nausea--Moderate Famotidine 20 mg PO BID #60 tab Omeprazole 40 mg PO BID #60 cap Sucralfate Tab [Carafate Tab] 1 gm PO QID #120 tab Home Medications: Ambulatory Orders Desvenlafaxine Succinate [Pristiq] 50 mg PO BEDTIME 10/23/18 Furosemide [Lasix] 20 mg PO DAILY 10/23/18 Albuterol Sulfate Nebs [Proventil Nebs] 2.5 mg INH PRN PRN 07/17/19 Atorvastatin Calcium [Lipitor] 20 mg PO BEDTIME 07/17/19 Pzmfisbmhm-Psmueaqkslfvu-Scjpq [Butalbital/Acetaminophen/] 1 cap PO PRN PRN 07/17/19 Cyanocobalamin Inj [Vitamin B-12 Inj] 1 ml IM ONCE 07/17/19 Meloxicam [Mobic] 15 mg PO DAILY 07/17/19 Metformin HCl [Metformin Hydrochloride E] 500 mg PO BID 07/17/19 Phentermine HCl [Adipex-P] 1 tablet PO DAILY 07/17/19 Promethazine Tab [Phenergan Tablet] 25 mg PO PRN PRN 07/17/19 Fenofibrate [Tricor] 48 mg PO DAILY 10/15/19 Fluconazole [Diflucan Tab] 100 mg PO DAILY 10/15/19 Thyroid [Grapple Crew Leader Thyroid 30] 30 mg PO DAILY 10/15/19 Trazodone HCl [Trazodone Hydrochloride] 50 mg PO BEDTIME 10/15/19 Famotidine 20 mg PO BID #60 tab 12/03/19 Omeprazole 40 mg PO BID #60 cap 12/03/19 Ondansetron Odt [Zofran ODT] 4 mg PO Q8HR PRN #5 tab 12/03/19 Sucralfate Tab [Carafate Tab] 1 gm PO QID #120 tab 12/03/19 Additional Instructions: The patient is a 64-year-old female presented emergency room with significant gastritis and esophagitis that is been worsening over the last 3 days. 2 sets of cardiac enzymes along with reassuring EKGs indicated that this is not likely coming from the heart. Vital signs have remained stable. The patient has responded very positively to GI medications here. The patient is going to be written for Carafate 4 times daily as well as omeprazole and famotidine twice daily. Additionally I want her to potato picker liquid Maalox or liquid Mylanta to use as needed for symptom control over the next couple of days. She needs to sleep with the head of her bed elevated. Additionally she needs to avoid hot or spicy foods, large meals, nicotine or caffeine. Additionally if she has any lactose intolerance she needs to avoid dairy for the short-term. I do want her to follow-up with her primary care doctor early next week otherwise. The patient is going to be discharged with a scopolamine patch in place. If she is exhibiting any evidence of confusion or altered behavior then this should be removed. Patient will additionally be written for some Zofran for as needed use to control any additional nausea or vomiting. ER warnings are given for any significant worsening. Obviously if symptoms are returning or worsening with the above management then additional work-up may be warranted. Additionally any anti-inflammatory such as meloxicam, ibuprofen or naproxen should be held for the next 2 weeks. Metformin should be held for the next 2 days. Phentermine should also be held for the next 4 or 5 days. These medications can greatly worsen the gastritis and esophagitis.
[2019-12-04 07:38] VITALS: TEMP 98.4
[2019-12-04 07:39] VITALS: BP 118/70; O2SAT 93
== END 2019-12-03 15:20 | disposition home or self-care (01) ==
LOC: ER 10:34
DX: K20.9 Esophagitis, unspecified (principal); K29.00 Acute gastritis without bleeding; R07.9 Chest pain, unspecified
CPT/HCPCS: 36415; 74019; 74177; 80053; 82150; 82550; 82553; 83690; 83735; 83880; 84484; 85025; 85379; 85610; 85730; 93005; A4216; J2270; J2550; J7030

== ENCOUNTER 2020-07-19 14:46 | Emergency (ER) | payer BC ==
[2020-07-19] MEDS ORDERED: SODIUM CHLORIDE 0.9% (FLUSH) 10 ML SYG IV PRN (15:02)
--- NOTE | 2020-07-19 15:24 | ED.PDOC ---
History of Present Illness - General Chief Complaint: Respiratory Problem Stated Complaint: SOB AND COUGH Time Seen by Provider: 07/19/20 14:50 Source: patient, family Exam Limitations: no limitations - History of Present Illness Initial Comments: SOB, ACHINESS (MYALGIAS), FATIGUE, GEN WEAKNESS, ROMAN, COUGH X 1 DAY. SX STARTED YESTERDAY. POS COVID CONTACTS ('S TWO SIBLINGS POS FOR COVID) TAKES LASIX "FOR FLUID RETENTION", NOT CHF OR HTN. Timing/Duration: 7-24 hours Severity: moderate Activities at Onset: none Possible Cause: illness exposure Improving Factors: nothing Worsening Factors: nothing Associated Symptoms: cough Respiratory Risk Factors: exposure to illness Allergies/Adverse Reactions: Allergies NO KNOWN ALLERGY Allergy (Verified 07/19/20 15:01) Home Medications: Ambulatory Orders Desvenlafaxine Succinate [Pristiq] 50 mg PO BEDTIME 10/23/18 Furosemide [Lasix] 20 mg PO DAILY 10/23/18 Albuterol Sulfate Nebs [Proventil Nebs] 2.5 mg INH PRN PRN 07/17/19 Atorvastatin Calcium [Lipitor] 20 mg PO BEDTIME 07/17/19 Hliarrjqiq-Wjtyrsnvhaxna-Yzubl [Butalbital/Acetaminophen/] 1 cap PO PRN PRN Cyanocobalamin Inj [Vitamin B-12 Inj] 1 ml IM ONCE 07/17/19 Meloxicam [Mobic] 15 mg PO DAILY 07/17/19 Metformin HCl [Metformin Hydrochloride E] 500 mg PO BID 07/17/19 Phentermine HCl [Adipex-P] 1 tablet PO DAILY 07/17/19 Promethazine Tab [Phenergan Tablet] 25 mg PO PRN PRN 07/17/19 Fenofibrate [Tricor] 48 mg PO DAILY 10/15/19 Fluconazole [Diflucan Tab] 100 mg PO DAILY 10/15/19 Thyroid [Die Cutter Diamond Thyroid 30] 30 mg PO DAILY 10/15/19 Trazodone HCl [Trazodone Hydrochloride] 50 mg PO BEDTIME 10/15/19 Famotidine 20 mg PO BID #60 tab 12/03/19 Omeprazole 40 mg PO BID #60 cap 12/03/19 Ondansetron Odt [Zofran ODT] 4 mg PO Q8HR PRN #5 tab 12/03/19 Sucralfate Tab [Carafate Tab] 1 gm PO QID #120 tab 12/03/19 Methylprednisolone [Medrol Dose Kenan] 4 mg PO DAILY #1 tab 07/19/20 Review of Systems - Review of Systems Constitutional: States: weakness. Denies: fever EENTM: Denies: ear pain, nose congestion Respiratory: States: cough, short of breath Cardiology: Denies: chest pain, palpitations Gastrointestinal/Abdominal: Denies: diarrhea, nausea, vomiting Genitourinary: Denies: dysuria, frequency Musculoskeletal: States: muscle pain - GENERALIZED MYALGIAS. . Denies: back pain, neck pain Skin: Denies: lesions, lumps, rash Neurological: States: headache - MILD FRONTAL., weakness - GENERALIZED FATIGUE, NO FOCAL WEAKNESS. . Denies: paresthesia Endocrine: Denies: intolerance to cold, intolerance to heat, increased hunger, increased thirst Hematologic/Lymphatic: Denies: easy bleeding, easy bruising All other Systems: Reviewed and Negative Past Medical History (General) - Patient Medical History Hx Seizures: No Hx Stroke: No Hx Dementia: No Hx Asthma: No Hx of COPD: No Hx Cardiac Disorders: No Hx Congestive Heart Failure: No Hx Pacemaker: No Hx Hypertension: No Hx Thyroid Disease: No Hx Diabetes: No Hx Gastroesophageal Reflux: Yes Hx Renal Disease: No Hx Cancer: No Hx of HIV: No Hx Hepatitis C: No Hx MRSA: No Surgical History: Hysterectomy - Vaccination History Hx Tetanus, Diphtheria Vaccination: No Hx Influenza Vaccination: Yes Hx Pneumococcal Vaccination: Yes - Social History Hx Tobacco Use: No Hx Chewing Tobacco Use: No Hx Alcohol Use: No Hx Substance Use: No Hx Substance Use Treatment: No Hx Depression: Yes - on celexa no suicidal thoughts Hx Physical Abuse: No Hx Emotional Abuse: No Hx Suspected Abuse: No - Female History Patient is a Female of Child Bearing Age (10 -59 yrs old): No Hx Last Menstrual Period: 07/01/84 Patient : No Family Medical History - Family History Mother Age (years): 42 Living Status: Hx Family Hypertension: Yes - dad Hx Cardiac Disease: Yes - heart attack at 42- Hx Family Diabetes: Yes - dad Hx Family Cancer: Yes - breast-mother,sister Hx Family;Other: sisters with breast cancer, brother and sister have diabetes. Father Living Status: Age at (years of age): 69 Cause of : complications from surgery Hx Family Hypertension: Yes Hx Cardiac Disease: Yes Hx Family Diabetes: Yes Physical Exam - Physical Exam General Appearance: Alert, Ill Appearing Eyes, Ears, Nose, Throat Exam: PERRL/EOMI, normal ENT inspection, TMs normal, pharynx normal Neck: non-tender, full range of motion, supple, normal inspection Respiratory: lungs clear, normal breath sounds, no respiratory distress, no accessory muscle use Cardiovascular/Chest: regular rate, rhythm, no JVD, no murmur Peripheral Pulses: radial,right: 2+, radial,left: 2+ Gastrointestinal/Abdominal: normal bowel sounds, non tender, soft Rectal Exam: deferred Extremity: normal range of motion, non-tender, no pedal edema, no calf tenderness 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 Bamlanivumab was offered but pt declines as she is wanting to go home. Pt is satting above 92% on RA and is safe for DC and care at home. She has albuterol inhaler PRN. I rx'd medrol dose pack. CXR, EKG, BNP, CBC, CMP, LACTIC ACID NO CONCERNS. Departure - Departure Clinical Impression: COVID-19, Myalgia, Cough Dyspnea Qualifiers: Dyspnea type: shortness of breath Qualified Code(s): R06.02 - Shortness of breath; R06.00 - Dyspnea, unspecified; R06.01 - Orthopnea Fatigue Qualifiers: Fatigue type: other Qualified Code(s): R53.83 - Other fatigue Disposition: Discharge to Home or Self Care Condition: Fair Departure Forms: ED Discharge - Pt. Copy, Patient Portal Self Enrollment Instructions: Coronavirus Disease 2019 (COVID-19) (DC) Diet: resume usual diet Activity: other - Get plenty of rest. Referrals: Ari Matamoros III, MD [Primary Care Provider] - 1-2 Weeks Prescriptions: Methylprednisolone [Medrol Dose Kenan] 4 mg PO DAILY #1 tab Home Medications: Ambulatory Orders Desvenlafaxine Succinate [Pristiq] 50 mg PO BEDTIME 10/23/18 Furosemide [Lasix] 20 mg PO DAILY 10/23/18 Albuterol Sulfate Nebs [Proventil Nebs] 2.5 mg INH PRN PRN 07/17/19 Atorvastatin Calcium [Lipitor] 20 mg PO BEDTIME 07/17/19 Uqwaiiqcap-Kcpkrhmjbwnaq-Faorp [Butalbital/Acetaminophen/] 1 cap PO PRN PRN 07/17/19 Cyanocobalamin Inj [Vitamin B-12 Inj] 1 ml IM ONCE 07/17/19 Meloxicam [Mobic] 15 mg PO DAILY 07/17/19 Metformin HCl [Metformin Hydrochloride E] 500 mg PO BID 07/17/19 Phentermine HCl [Adipex-P] 1 tablet PO DAILY 07/17/19 Promethazine Tab [Phenergan Tablet] 25 mg PO PRN PRN 07/17/19 Fenofibrate [Tricor] 48 mg PO DAILY 10/15/19 Fluconazole [Diflucan Tab] 100 mg PO DAILY 10/15/19 Thyroid [Die Cutter Diamond Thyroid 30] 30 mg PO DAILY 10/15/19 Trazodone HCl [Trazodone Hydrochloride] 50 mg PO BEDTIME 10/15/19 Famotidine 20 mg PO BID #60 tab 12/03/19 Omeprazole 40 mg PO BID #60 cap 12/03/19 Ondansetron Odt [Zofran ODT] 4 mg PO Q8HR PRN #5 tab 12/03/19 Sucralfate Tab [Carafate Tab] 1 gm PO QID #120 tab 12/03/19 Methylprednisolone [Medrol Dose Kenan] 4 mg PO DAILY #1 tab 07/19/20 Additional Instructions: You have Covid-19 infection. Please quarantine for 10 days. Please return to the ER if your breathing worsens, in which case you might need to be admitted to the hospital.
--- NOTE | 2020-07-19 15:41 | RAD ---
EXAM DESCRIPTION: Chest,1 View CLINICAL HISTORY: 64 years Female, DYSPNEA X 1 DAY, RECENT KNOWN COVID CONTACT. COMPARISON: 05/20/2017 FINDINGS: One view/radiograph Heart size and pulmonary vessels are within normal limits. There is no pneumothorax or pleural effusion. The lungs are clear bilaterally. The soft tissues are unremarkable. No acute osseous findings. IMPRESSION: No acute cardiopulmonary abnormality. Electronically signed by: Niels Nowak MD 07/19/2020 3:39 PM [facility]
[2020-07-19 18:19] VITALS: BP 107/71; TEMP 99.7; O2SAT 93
== END 2020-07-19 18:19 | disposition home or self-care (01) ==
LOC: ER 14:46
DX: U07.1 COVID-19 (principal); K21.9 Gastro-esophageal reflux disease without esophagitis; F32.9 Major depressive disorder, single episode, unspecified; Z79.899 Other long term (current) drug therapy; Z79.84 Long term (current) use of oral hypoglycemic drugs